=== PATIENT | female | born 1945 | race Caucasian/White ===

== ENCOUNTER 2016-10-11 07:56 | Emergency (ER) | payer MEDICARE, OTHER ==
--- NOTE | 2016-10-11 08:19 | Emergency Department Record ---
History of Present Illness - General Chief complaint: Abscess Stated complaint: SWELLING IN LEG/PAINFUL Time Seen by Provider: 10/11/16 08:13 Mode of Arrival: Wheelchair - History of Present Illness Initial comments: abcess in the area of the right labia majora and it has been present for 2 days and some drainage spontaneously. complaint: Abscess/boil Onset/Timin -: Days(s) Hx Tetanus Toxoid Vaccination: Yes Year of Tetanus Vaccination: unknown Patient Tetanus UTD (within 5 yrs): Yes Location: Genitals Severity scale (1-10): 10 Quality: Sharp Consistency: Constant Improves with: None Worsens with: Palpation, Movement Context: None Associated symptoms: Denies other symptoms Treatments Prior to Arrival: None - Related Data Home Medications Medication Instructions Recorded Confirmed Last Taken Aspirin [Aspirin EC] 81 mg PO DAILY 12/30/14 03/09/16 03/09/16 Ipratropium [place] [Atrovent] 15 ml NS TID PRN 12/30/14 03/09/16 03/09/16 Levocetirizine Dihydrochloride 5 mg PO DAILY 12/30/14 03/09/16 03/09/16 [Xyzal] Pramipexole Di-HCl [Mirapex] 0.5 mg PO QHS 12/30/14 03/09/16 03/09/16 Sertraline HCl [Zoloft] 200 mg PO DAILY 12/30/14 03/09/16 03/09/16 Donepezil HCl [Aricept] 10 mg PO DAILY 01/21/15 03/09/16 03/09/16 Cholecalciferol (Vitamin D3) 2,000 unit PO DAILY 11/20/15 03/09/16 03/09/16 [Vitamin D3] Gabapentin [Neurontin] 200 mg PO TID 11/20/15 03/09/16 03/09/16 Glucosamine Sulf/Chondroitin A 3 each PO DAILY 11/20/15 03/09/16 03/09/16 [Glucosamine-Chondroitin Cap] Immun Glob G(IgG)/Pro/Iga 0-50 50 ml IV MONTHLY 11/20/15 03/09/16 03/09/16 [Privigen 10% Vial] Meloxicam [Mobic] 7.5 mg PO BID 11/20/15 03/09/16 03/09/16 Trazodone HCl [Desyrel] 25 mg PO QHS PRN 11/20/15 03/09/16 03/09/16 Magnesium 200 mg PO DAILY 03/09/16 03/09/16 03/09/16 Previous Rx's Medication Instructions Recorded Omeprazole 40 mg PO BID #60 capsule. 12/30/14 Levothyroxine Sodium [Levoxyl] 150 mcg PO DAILY #30 tablet 03/22/15 Acetaminophen with Codeine 1 tab PO Q6H #7 tab 03/09/16 [Tylenol #3] Clindamycin HCl [Cleocin HCl] 300 mg PO Q8HR #30 capsule 10/11/16 Hydrocodone/Acetaminophen [[place] 1 tab PO Q6H PRN #20 tab 10/11/16 5mg/325mg] Allergies Allergy/AdvReac Type Severity Reaction Status Date / Time latex [LATEX] Allergy Intermediate HIVES Verified 11/20/15 09:57 Sulfa (Sulfonamide Allergy Intermediate HIVES Verified 11/20/15 09:57 Antibiotics) [SULFA (SULFONAMIDE ANTIBIOTICS)] tioconazole AdvReac pain Verified 03/09/16 16:44 [From Monistat 1 (tioconazole)] Travel Screening - Travel/Exposure Within Last 30 Days Have you traveled within the last 30 days?: No Review of Systems Reviewed: No additional complaints except as noted below Constitutional: Reports: As per HPI. Denies: Chills, Fever, Malaise, Night sweats, Weakness, Weight change Eyes: Reports: As per HPI. Denies: Eye discharge, Eye pain, Photophobia, Vision change ENT: Reports: As per HPI. Denies: Congestion, Dental pain, Ear pain, Epistaxis , Hearing loss, Throat pain Respiratory: Reports: As per HPI. Denies: Cough, Dyspnea, Hemoptysis, Stridor, Wheezes Cardiovascular: Reports: As per HPI. Denies: Arrhythmia, Chest pain, Dyspnea on exertion, Edema, Murmurs, Orthopnea, Palpitations, Paroxysmal nocturnal dyspnea, Rheumatic Fever, Syncope Endocrine: Reports: As per HPI. Denies: Fatigue, Heat or cold intolerance, Polydipsia, Polyuria Gastrointestinal: Reports: As per HPI. Denies: Abdominal pain, Constipation, Diarrhea, Hematemesis, Hematochezia, Melena, Nausea, Vomiting Genitourinary: Reports: As per HPI. Denies: Abnormal menses, Discharge, Dyspareunia, Dysuria, Frequency, Hematuria, Incontinence, Retention, Urgency Musculoskeletal: Reports: As per HPI. Denies: Arthralgia, Back pain, Gout, Joint swelling, Myalgia, Neck pain Skin: Reports: As per HPI. Denies: Bruising, Change in color, Change in hair/ nails, Lesions, Pruritus, Rash Neurological: Reports: As per HPI. Denies: Abnormal gait, Confusion, Headache, Numbness, Paresthesias, Seizure, Tingling, Tremors, Vertigo, Weakness Psychiatric: Reports: As per HPI. Denies: Anxiety, Auditory hallucinations, Depression, Homicidal thoughts, Suicidal thoughts, Visual hallucinations Hematological/Lymphatic: Reports: As per HPI. Denies: Anemia, Blood Clots, Easy bleeding, Easy bruising, Swollen glands Past Medical History - SOCIAL HISTORY Smoking Status: Never smoker Alcohol Use: None Drug Use: None - RESPIRATORY Hx Respiratory Disorders: Yes Hx Sleep Apnea: Yes (needs testing) Hx of CPAP: No Comment:: has sinus problems-common sinus infections-clear sinus drainage - CARDIOVASCULAR Hx Cardio Disorders: Yes Hx Edema: Yes Hx Hypertension: Yes Comment:: heart murmur - NEURO Hx Neuro Disorders: Yes Hx Brain Tumor: Yes (20 yrs ago "pinpoint"-many CAT scans-no problems) Hx Dementia: Yes (on meds) Hx Dizziness: Yes ("comes & goes"/thyroid related) Hx Headaches: Yes (sinus related) Hx Neuropathy: Yes (hands&feet) Hx Parkinson's Disease: Yes (trembling of hands) Comment:: 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 - GI Hx GI Disorders: Yes Hx Abdominal Pain: Yes (diverticulosis) Hx Diverticulitis: Yes Hx Reflux: Yes Hx Hiatal Hernia: Yes Hx Irritable Bowel: Yes Hx Obstructive Bowel: Yes Hx Wt Loss/Wt Gain: Yes - Hx Genitourinary Disorders: Yes Hx Bladder Problem: Yes (incontinence x 2 years) Hx Kidney Stones: Yes Comment:: hyst - ENDOCRINE Hx Endocrine Disorders: Yes Hx Thyroid Disease: Yes (hypo) - MUSCULOSKELETAL Hx Musculoskeletal Disorders: Yes Hx Arthritis: Yes (hands/knees/elbows/back & hips) Hx Back Injury: Yes (sees chiropractor) Hx Osteoporosis: Yes - PSYCH Hx Psych Problems: Yes Hx Anxiety: Yes Hx Depression: Yes Hx Suicide Attempt: Yes - HEMATOLOGY/ONCOLOGY Hx Hematology/Oncology Disorders: Yes 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:: melanoma-spot looks like it returned-right ankle Family Medical History Any Significant Family History?: Yes Hx Anxiety: Mother Hx Depression: Father, Mother, Children, Brother/Sister Hx Diabetes: Brother/Sister *Diabetes Comment: 2 sisters & 1 brother Hx Heart Disease: Father, Brother/Sister *Heart Comment: brother 3 MIs Hx Resp Disorders: Brother/Sister *Resp Comment: 3 sisters use CPAP @ nite Physical Exam - General General Appearance: Alert, Oriented x3, Cooperative, No acute distress - Head Head exam: Normal inspection - Eye Eye exam: Normal appearance, PERRL Pupils: Normal accommodation - ENT ENT exam: Normal exam, Mucous membranes moist, Normal external ear exam, Normal orophraynx, TM's normal bilaterally Ear exam: Normal external inspection. negative: External canal tenderness Nasal Exam: Normal inspection. negative: Discharge, Sinus tenderness Mouth exam: Normal external inspection, Tongue normal Teeth exam: Normal inspection. negative: Dental caries Throat exam: Normal inspection. negative: Tonsillar erythema, Tonsillar exudate - Neck Neck exam: Normal inspection, Full ROM. negative: Tenderness - Respiratory Respiratory exam: Normal lung sounds bilaterally. negative: Respiratory distress - Cardiovascular Cardiovascular Exam: Regular rate, Normal rhythm, Normal heart sounds - GI/Abdominal GI/Abdominal exam: Soft, Normal bowel sounds. negative: Tenderness - Rectal Rectal exam: Deferred - exam: Deferred - Extremities Extremities exam: Normal inspection, Full ROM, Normal capillary refill. negative: Tenderness - Back Back exam: Reports: Normal inspection, Full ROM. Denies: Muscle spasm, Rash noted, Tenderness - Neurological Neurological exam: Alert, Normal gait, Oriented X3, Reflexes normal - Psychiatric Psychiatric exam: Normal affect, Normal mood - Skin Skin exam: Dry, Intact, Normal color, Warm Type of lesion: Abscess (right labia majora) Course - Reevaluation(s) Reevaluation #1: I and D abscess , cleaned skin and incision with 11 blade and packing placed. purulent drainage 10/11/16 08:57 Disposition Clinical Impression: Abscess Disposition: Home, Self-Care Instructions: Abscess Incision and Drainage (ED) Additional Instructions: warm compresses three times a day follow up with Dr. Castañeda tomorrow at 10 am Prescriptions: Clindamycin HCl [Cleocin HCl] 300 mg PO Q8HR #30 capsule Hydrocodone/Acetaminophen [[place] 5mg/325mg] 1 tab PO Q6H PRN #20 tab PRN Reason: Pain - General Forms: Patient Portal Access Time of Disposition: 09:00
[2016-10-11] MEDS: HYDROMORPHONE HCL 1 MG/ML CPJ IVP ONE (08:22)
[2016-10-11] MEDS: ONDANSETRON HCL IV 4 MG/2 ML VIAL IVP ONE (08:22)
[2016-10-11] MEDS: CLINDAMYCIN 150 MG CAP PO ONE (10:07)
== END 2016-10-11 10:22 | disposition home or self-care (01) ==
LOC: ER 07:56
DX: N76.4 Abscess of vulva (principal)
CPT/HCPCS: 56405; 96374; 96375; 99284; J1170; J2405

== ENCOUNTER 2017-06-05 13:06 | Emergency (ER) | payer MEDICARE, OTHER ==
[2017-06-05 14:31] LABS: BASO % 0.2 % (0-6); EOS % 1.7 % (0-6); GRAN % 61.4 % (47-80); HEMATOCRIT 40.9 % (35.0-47.0); HEMOGLOBIN 13.4 gm/dl (11.6-16.0); LYMPH % 29.5 % (16-45); MEAN CELL VOLUME 92.3 fl (81-97); MEAN CORPUSCULAR HEMOGLOBIN 30.2 pg (27-33); MEAN CORPUSCULAR HGB CONC 32.8 g/dl (32-36); MEAN PLATELET VOLUME 10.6 fl (7.4-10.4); MONO % 7.2 % (0-9); PLATELET COUNT 165 K/uL (130-400); RED BLOOD COUNT 4.43 M/uL (3.80-5.40); RED CELL DISTRIBUTION WIDTH 14.8 % (11.5-14.5); WHITE BLOOD COUNT W/O DIFF 8.2 K/uL (4.2-12.2)
--- NOTE | 2017-06-05 14:31 | Emergency Department Record ---
History of Present Illness - General Chief Complaint: Fall Injury Stated Complaint: FELL, HEAD INJ Time Seen by Provider: 06/05/17 14:01 Source: Patient Mode of Arrival: Ambulatory Limitations: No limitations - History of Present Illness Initial Comments: pt fell twice recently hitting head and injuring her neck. pt is having multiple falls and increasing disturbances with her gait and speech. she has seen a neurologist but is no longer Onset/Timin -: Week(s) Fall From: Out of bed, Standing When Fall Occurred: Recurrent falls Fall Witnessed: No Place Fall Occurred: Home Loss of Consciousness: None Prolonged Down Time?: No Symptoms Prior to Fall: None Location: Head Severity: Moderate Severity scale (1-10): 7 Quality: Aching Context: History of frequent falls Associated Symptoms: Denies - [place] Coma Scale Eye Response: (4) Open spontaneously Motor Response: (6) Obeys commands Verbal Response: (5) Oriented Víctor Total: 15 - Related Data Previous Rx's Medication Instructions Recorded Omeprazole 40 mg PO BID #60 capsule. 12/30/14 Levothyroxine Sodium [Levoxyl] 150 mcg PO DAILY #30 tablet 03/22/15 Hydrocodone/Acetaminophen [[place] 1 tab PO Q6H PRN #20 tab 10/11/16 5mg/325mg] Allergies Allergy/AdvReac Type Severity Reaction Status Date / Time latex [LATEX] Allergy Intermediate HIVES Verified 06/05/17 13:48 Sulfa (Sulfonamide Allergy Intermediate HIVES Verified 06/05/17 13:48 Antibiotics) [SULFA (SULFONAMIDE ANTIBIOTICS)] tioconazole AdvReac pain Verified 06/05/17 13:48 [From Monistat 1 (tioconazole)] Travel Screening - Travel/Exposure Within Last 30 Days Have you traveled within the last 30 days?: No - Travel/Exposure Within Last Year Have you traveled outside the [place] in the last year?: No - Additonal Travel Details Have you been exposed to anyone with a communicable illness?: No - Travel Symptoms Symptom Screening: None Review of Systems Reviewed: No additional complaints except as noted below Constitutional: Reports: As per HPI. Denies: Chills, Fever, Malaise, Night sweats, Weakness, Weight change Eyes: Reports: As per HPI. Denies: Eye discharge, Eye pain, Photophobia, Vision change ENT: Reports: As per HPI. Denies: Congestion, Dental pain, Ear pain, Epistaxis , Hearing loss, Throat pain Respiratory: Reports: As per HPI. Denies: Cough, Dyspnea, Hemoptysis, Stridor, Wheezes Cardiovascular: Reports: As per HPI. Denies: Arrhythmia, Chest pain, Dyspnea on exertion, Edema, Murmurs, Orthopnea, Palpitations, Paroxysmal nocturnal dyspnea, Rheumatic Fever, Syncope Endocrine: Reports: As per HPI. Denies: Fatigue, Heat or cold intolerance, Polydipsia, Polyuria Gastrointestinal: Reports: As per HPI. Denies: Abdominal pain, Constipation, Diarrhea, Hematemesis, Hematochezia, Melena, Nausea, Vomiting Genitourinary: Reports: As per HPI. Denies: Abnormal menses, Discharge, Dyspareunia, Dysuria, Frequency, Hematuria, Incontinence, Retention, Urgency Musculoskeletal: Reports: As per HPI. Denies: Arthralgia, Back pain, Gout, Joint swelling, Myalgia, Neck pain Skin: Reports: As per HPI. Denies: Bruising, Change in color, Change in hair/ nails, Lesions, Pruritus, Rash Neurological: Reports: As per HPI. Denies: Abnormal gait, Confusion, Headache, Numbness, Paresthesias, Seizure, Tingling, Tremors, Vertigo, Weakness Psychiatric: Reports: As per HPI. Denies: Anxiety, Auditory hallucinations, Depression, Homicidal thoughts, Suicidal thoughts, Visual hallucinations Hematological/Lymphatic: Reports: As per HPI. Denies: Anemia, Blood Clots, Easy bleeding, Easy bruising, Swollen glands Past Medical History - SOCIAL HISTORY Smoking Status: Never smoker Alcohol Use: None Drug Use: None - RESPIRATORY Hx Respiratory Disorders: Yes Hx Sleep Apnea: Yes (needs testing) Hx of CPAP: No Comment:: has sinus problems-common sinus infections-clear sinus drainage - CARDIOVASCULAR Hx Cardio Disorders: Yes Hx Edema: Yes Hx Hypertension: Yes Comment:: heart murmur - NEURO Hx Neuro Disorders: Yes Hx Brain Tumor: Yes (20 yrs ago "pinpoint"-many CAT scans-no problems) Hx Dementia: Yes (on meds) Hx Dizziness: Yes ("comes & goes"/thyroid related) Hx Headaches: Yes (sinus related) Hx Neuropathy: Yes (hands&feet) Hx Parkinson's Disease: Yes (trembling of hands) Comment:: 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 - GI Hx GI Disorders: Yes Hx Abdominal Pain: Yes (diverticulosis) Hx Diverticulitis: Yes Hx Reflux: Yes Hx Hiatal Hernia: Yes Hx Irritable Bowel: Yes Hx Obstructive Bowel: Yes Hx Wt Loss/Wt Gain: Yes - Hx Genitourinary Disorders: Yes Hx Bladder Problem: Yes (incontinence x 2 years) Hx Kidney Stones: Yes Comment:: hyst - ENDOCRINE Hx Endocrine Disorders: Yes Hx Thyroid Disease: Yes (hypo) - MUSCULOSKELETAL Hx Musculoskeletal Disorders: Yes Hx Arthritis: Yes (hands/knees/elbows/back & hips) Hx Back Injury: Yes (sees chiropractor) Hx Osteoporosis: Yes - PSYCH Hx Psych Problems: Yes Hx Anxiety: Yes Hx Depression: Yes Hx Suicide Attempt: Yes - HEMATOLOGY/ONCOLOGY Hx Hematology/Oncology Disorders: Yes 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:: melanoma-spot looks like it returned-right ankle Family Medical History Any Significant Family History?: Yes Hx Anxiety: Mother Hx Depression: Father, Mother, Children, Brother/Sister Hx Diabetes: Brother/Sister *Diabetes Comment: 2 sisters & 1 brother Hx Heart Disease: Father, Brother/Sister *Heart Comment: brother 3 MIs Hx Resp Disorders: Brother/Sister *Resp Comment: 3 sisters use CPAP @ nite Physical Exam - General General Appearance: Alert, Oriented x3, Cooperative, Mild distress - Head Head exam: Normal inspection - Eye Eye exam: Normal appearance, PERRL, EOMI Pupils: Normal accommodation - ENT ENT exam: Normal exam, Mucous membranes moist, Normal external ear exam, Normal orophraynx Ear exam: Normal external inspection. negative: External canal tenderness Nasal Exam: Normal inspection. negative: Discharge, Sinus tenderness Mouth exam: Normal external inspection, Tongue normal Teeth exam: Normal inspection. negative: Dental caries Throat exam: Normal inspection. negative: Tonsillar erythema, Tonsillar exudate - Neck Neck exam: Normal inspection, Full ROM. negative: Tenderness - Respiratory Respiratory exam: Normal lung sounds bilaterally. negative: Respiratory distress - Cardiovascular Cardiovascular Exam: Regular rate, Normal rhythm, Normal heart sounds - GI/Abdominal GI/Abdominal exam: Soft, Normal bowel sounds. negative: Tenderness - Rectal Rectal exam: Deferred - exam: Deferred - Extremities Extremities exam: Normal inspection, Full ROM, Normal capillary refill. negative: Tenderness - Back Back exam: Reports: Normal inspection, Full ROM. Denies: Muscle spasm, Rash noted, Tenderness - Neurological Neurological exam: Abnormal gait, Alert, CN II-XII intact, Oriented X3, Other ( difficulty w speech). negative: Normal gait - Psychiatric Psychiatric exam: Normal affect, Normal mood - Skin Skin exam: Dry, Intact, Normal color, Warm Course Vital Signs 06/05/17 13:52 Temperature 98.3 F Pulse Rate 69 Respiratory 16 Rate Blood Pressure 147/85 Pulse Ox 95 Medical Decision Making - Lab Data Result diagrams: 06/05/17 14:22 06/05/17 14:22 Disposition Disposition: Discharge Clinical Impression: Frequent falls Head injury Qualifiers: Encounter type: initial encounter Qualified Code(s): S09.90XA - Unspecified injury of head, initial encounter Disposition: Home, Self-Care Condition: (1) Good Instructions: Fall Prevention for Older Adults (ED), Head Injury (ED) Additional Instructions: follow up with family doctor and with neurologist. return sooner if worse Forms: Patient Portal Access Quality - Quality Measures Quality Measures: N/A - Blood Pressure Screening Does Patient Have Any of the Following: No Blood Pressure Classification: Pre-Hypertensive BP Reading Systolic Measurement: 147 Diastolic Measurement: 85 Screening for High Blood Pressure: < Pre-Hypertensive BP, F/U Documented > [ [id number]] Pre-Hypertensive Follow-up Interventions: Follow-up with rescreen every year.
[2017-06-05 14:43] LABS: BLOOD UREA NITROGEN 22 mg/dL (8-23); CREATININE 0.6 mg/dL (0.5-0.9); EST GLOMERULAR FILTRATION RATE > 60 mL/min
[2017-06-05 14:46] LABS: GLUCOSE,RANDOM 106 mg/dL (74-109)
--- NOTE | 2017-06-06 07:30 | CT SCAN REPORT ---
EXAM: HEAD CT WITHOUT CONTRAST HISTORY: FALL, POSTERIOR HEAD CONTUSION. NO LOSS OF CONSCIOUSNESS. PERSISTENT HEADACHES. TECHNIQUE: Contiguous axial images from the cerebral convexities to the foramen magnum were obtained without contrast. Comparison: None. Encounter: Initial. Hand dominance: Right. FINDINGS: The brain volume is normal. No acute intracranial hemorrhage, mass effect, or midline shift. No CT evidence of acute infarct. The ventricles, basal cisterns, and sulci are within normal limits. The osseous structures and soft tissues are unremarkable. Mild mucosal thickening left maxillary sinus. IMPRESSION: 1. NO ACUTE INTRACRANIAL PROCESS. 2. LEFT CHRONIC MAXILLARY SINUSITIS. JOB NUMBER: [id number] [facility]
--- NOTE | 2017-06-06 07:35 | CT SCAN REPORT ---
EXAM: CERVICAL SPINE CT WITH TWO DIMENSIONAL REFORMATS HISTORY: FALL, POSTERIOR HEAD CONTUSION, NECK PAIN. TECHNIQUE: Contiguous axial images from the skull base to the T2 level were obtained without contrast. Sagittal and coronal two dimensional MIP reformatted images were obtained for better anatomic delineation. Comparison: None. Encounter: Initial. FINDINGS: Anatomic alignment of the cervical spine. The C1-C2 articulation appears appropriate and the odontoid process is intact. No acute fracture or subluxation. Moderate to advanced degenerative disk disease at C6-C7 manifested by loss of stature as well as end plate osteophytes. No central canal stenosis at any level. Varying degrees of neural foraminal stenosis most pronounced at C4-C5 on the right. Moderate left neural foraminal stenosis at C6 -C7 on the left. The soft tissues of the cervical region are unremarkable. The lung apices are clear. IMPRESSION: MULTILEVEL DEGENERATIVE CHANGE OF THE CERVICAL SPINE. NO ACUTE FRACTURE OR SUBLUXATION. JOB NUMBER: [id number] [facility]
== END 2017-06-05 15:30 | disposition home or self-care (01) ==
LOC: ER 13:06
DX: S09.90XA Unspecified injury of head, initial encounter (principal); S00.83XA Contusion of other part of head, initial encounter; M54.2 Cervicalgia; R51 Headache; I10 Essential (primary) hypertension; W06.XXXA Fall from bed, initial encounter; Z91.81 History of falling; Y92.003 Bedroom of unspecified non-institutional (private) residence as the place of occurrence of the external cause
CPT/HCPCS: 70450; 72125; 80048; 85025; 99283; 99284

== ENCOUNTER 2017-09-04 17:55 | Emergency (ER) | payer MEDICARE, OTHER ==
[2017-09-04] MEDS ORDERED: THROMBIN/GELATIN FOAM HEMOSTAT (THROMBI-GEL) TP ONE (18:23)
[2017-09-04] MEDS ORDERED: TOPICAL LIDOCAINE W/ EPI 5 ML TOP ONE (18:23)
--- NOTE | 2017-09-04 18:40 | Emergency Department Record ---
History of Present Illness - General Chief Complaint: Laceration(s) Stated Complaint: RT LEG BLEEDING Time Seen by Provider: 09/04/17 18:23 Source: Patient Mode of Arrival: Ambulatory Limitations: No limitations - History of Present Illness Initial Commments: 72 yo female presents with bleeding from a varicose vein. She scratched the vein on her right thigh. She is on aspirin. NO other recent health changes. Onset/Timin -: Minutes(s) Extremity Location: Right: Thigh Place: Home Context: Accidental Associated Symptoms: None Treatments Prior to Arrival: Other Treatment Prior to Arrival Comment:: tape - [place] Coma Scale Eye Response: (4) Open spontaneously Motor Response: (6) Obeys commands Verbal Response: (5) Oriented [place] Total: 15 - Related Data Hx Tetanus Toxoid Vaccination: Yes Year of Tetanus Vaccination: unknown Patient Tetanus UTD (within 5 yrs): Yes Home Medications Medication Instructions Recorded Confirmed Last Taken Atorvastatin Calcium [Atorvastatin 10 mg PO DAILY 09/04/17 09/04/17 09/04/17 Calcium] Bumetanide [Bumex] 1 mg PO DAILY 09/04/17 09/04/17 09/04/17 Levothyroxine Sodium [Levoxyl] 300 mcg PO DAILY 09/04/17 09/04/17 09/04/17 Memantine HCl/Donepezil HCl 1 each PO ASDIR 09/04/17 09/04/17 09/04/17 [Namzaric 28 mg-10 mg Capsule] Potassium Chloride [Potassium 10 meq PO DAILY 09/04/17 09/04/17 09/04/17 Chloride] Previous Rx's Medication Instructions Recorded Omeprazole 40 mg PO BID #60 capsule. 12/30/14 Allergies Allergy/AdvReac Type Severity Reaction Status Date / Time latex [LATEX] Allergy Intermediate HIVES Verified 09/04/17 18:11 Sulfa (Sulfonamide Allergy Intermediate HIVES Verified 09/04/17 18:11 Antibiotics) [SULFA (SULFONAMIDE ANTIBIOTICS)] tioconazole AdvReac pain Verified 09/04/17 18:11 [From Monistat 1 (tioconazole)] Travel Screening - Travel/Exposure Within Last 30 Days Have you traveled within the last 30 days?: No - Travel/Exposure Within Last Year Have you traveled outside the [place] in the last year?: No - Additonal Travel Details Have you been exposed to anyone with a communicable illness?: No - Travel Symptoms Symptom Screening: None Review of Systems Constitutional: Denies: Chills, Fever, Malaise, Weakness Eyes: Denies: Eye discharge ENT: Denies: Congestion Respiratory: Denies: Cough, Dyspnea, Hemoptysis Cardiovascular: Denies: Chest pain, Palpitations, Syncope Endocrine: Denies: Fatigue Gastrointestinal: Denies: Abdominal pain, Nausea, Vomiting Genitourinary: Denies: Dysuria, Urgency Musculoskeletal: Denies: Arthralgia, Back pain, Gout, Myalgia Skin: Denies: Bruising, Change in color, Rash Neurological: Denies: Headache Psychiatric: Denies: Anxiety Hematological/Lymphatic: Denies: Blood Clots, Easy bleeding, Easy bruising, Swollen glands Past Medical History - SOCIAL HISTORY Smoking Status: Never smoker Alcohol Use: None Drug Use: None - RESPIRATORY Hx Respiratory Disorders: Yes Hx Sleep Apnea: Yes (needs testing) Hx of CPAP: No Comment:: has sinus problems-common sinus infections-clear sinus drainage - CARDIOVASCULAR Hx Cardio Disorders: Yes Hx Edema: Yes Hx Hypertension: Yes Comment:: heart murmur - NEURO Hx Neuro Disorders: Yes Hx Brain Tumor: Yes (20 yrs ago "pinpoint"-many CAT scans-no problems) Hx Dementia: Yes (on meds) Hx Dizziness: Yes ("comes & goes"/thyroid related) Hx Headaches: Yes (sinus related) Hx Neuropathy: Yes (hands&feet) Hx Parkinson's Disease: Yes (trembling of hands) Comment:: 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 - GI Hx GI Disorders: Yes Hx Abdominal Pain: Yes (diverticulosis) Hx Diverticulitis: Yes Hx Reflux: Yes Hx Hiatal Hernia: Yes Hx Irritable Bowel: Yes Hx Obstructive Bowel: Yes Hx Wt Loss/Wt Gain: Yes - Hx Genitourinary Disorders: Yes Hx Bladder Problem: Yes (incontinence x 2 years) Hx Kidney Stones: Yes Comment:: hyst - ENDOCRINE Hx Endocrine Disorders: Yes Hx Thyroid Disease: Yes (hypo) - MUSCULOSKELETAL Hx Musculoskeletal Disorders: Yes Hx Arthritis: Yes (hands/knees/elbows/back & hips) Hx Back Injury: Yes (sees chiropractor) Hx Osteoporosis: Yes - PSYCH Hx Psych Problems: Yes Hx Anxiety: Yes Hx Depression: Yes Hx Suicide Attempt: Yes - HEMATOLOGY/ONCOLOGY Hx Hematology/Oncology Disorders: Yes 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:: melanoma-spot looks like it returned-right ankle Family Medical History Any Significant Family History?: Yes Hx Anxiety: Mother Hx Depression: Father, Mother, Children, Brother/Sister Hx Diabetes: Brother/Sister *Diabetes Comment: 2 sisters & 1 brother Hx Heart Disease: Father, Brother/Sister *Heart Comment: brother 3 MIs Hx Resp Disorders: Brother/Sister *Resp Comment: 3 sisters use CPAP @ nite Physical Exam - General General Appearance: Alert, Oriented x3, Cooperative, No acute distress Limitations: No limitations - Head Head exam: Atraumatic, Normal inspection - Eye Eye exam: Normal appearance. negative: Conjunctival injection, Scleral icterus - ENT ENT exam: Normal exam Ear exam: Normal external inspection Nasal Exam: Normal inspection Mouth exam: Normal external inspection - Neck Neck exam: Normal inspection - Respiratory Respiratory exam: Normal lung sounds bilaterally. negative: Respiratory distress - Cardiovascular Cardiovascular Exam: Regular rate, Normal rhythm, Normal heart sounds - Rectal Rectal exam: Deferred - exam: Deferred - Extremities Extremities exam: Other (2mm scabbed area mid anterior thigh. no active bleeding). negative: Normal inspection - Neurological Neurological exam: Alert, Oriented X3 - Psychiatric Psychiatric exam: Normal affect, Normal mood - Skin Skin exam: Dry, Intact, Normal color, Warm Course Vital Signs 09/04/17 18:16 Temperature 97.6 F Pulse Rate 82 Respiratory 20 Rate Blood Pressure 146/72 Pulse Ox 96 - Reevaluation(s) Reevaluation #1: 09/04/17 19:00 The area had pressure on it the last hour The area had formed a small scab/clot No active bleeding The area was prepped with betadine and cleaned with NS No return of bleeding The area was sealed with Dermabond without bleeding We discussed home care and reasons to return to the ED Disposition Disposition: Discharge Clinical Impression: Varicose vein of leg Disposition: Home, Self-Care Condition: (1) Good Instructions: Stasis Dermatitis (ED) Additional Instructions: Keep the area clean The Dermabond will last about 5-7 days Return if you have bleeding, redness, pus, or any new concerns Forms: Patient Portal Access Time of Disposition: 18:41 Quality - Quality Measures Quality Measures: N/A - Blood Pressure Screening Does Patient Have Any of the Following: No Blood Pressure Classification: Hypertensive Reading Systolic Measurement: 146 Diastolic Measurement: 72 Screening for High Blood Pressure: < Pre-Hypertensive BP, F/U Documented > [ [id number]] Pre-Hypertensive Follow-up Interventions: Referral to alternative/primary care provider.
== END 2017-09-04 19:16 | disposition home or self-care (01) ==
LOC: ER 17:55
DX: I83.891 Varicose veins of right lower extremity with other complications (principal); I10 Essential (primary) hypertension
CPT/HCPCS: 99283

== ENCOUNTER 2017-12-21 07:09 | Emergency (ER) | payer MEDICARE, OTHER ==
[2017-12-21] MEDS ORDERED: TRAMADOL HCL 50 MG TABLET PO ONE (07:32)
--- NOTE | 2017-12-21 07:36 | Emergency Department Record ---
History of Present Illness - General Chief Complaint: Fall Injury Stated Complaint: FALL Time Seen by Provider: 12/21/17 07:23 Source: Patient, Family Mode of Arrival: Ambulatory Limitations: No limitations - History of Present Illness Initial Comments: 72 yo female presents after a fall two days ago on December 19 at AM. She was not using he walker, carrying a laundry basket. She turned an lost her balance. She has had elbow, back, neck, and hip pain since then. She has a chronic degenerative neurologic disorder. She has had frequent falls over many years. She has had a history of compression fractures with cement injections about a month ago at another hospital. She did not hit her head, no head ache. She is not on anti-coagulants. PCP [facility]. Beth Fagan. She has been ambulatory with her walker since the fall. MD Complaint: Fall Onset/Timin -: Days(s) When Fall Occurred: # Days [employer]GE[employer] Fall Witnessed: No Place Fall Occurred: Home Loss of Consciousness: None Prolonged Down Time?: No Symptoms Prior to Fall: None Location: Head, Neck, Back, Buttocks Location - Extremities: Left: Elbow, Thigh, Right: Thigh Severity: Moderate Severity scale (1-10): 6 Context: History of frequent falls - [place] Coma Scale Eye Response: (4) Open spontaneously Motor Response: (6) Obeys commands Verbal Response: (5) Oriented [place] Total: 15 - Related Data Previous Rx's Medication Instructions Recorded Omeprazole 40 mg PO BID #60 capsule. 12/30/14 Allergies Allergy/AdvReac Type Severity Reaction Status Date / Time latex [LATEX] Allergy Intermediate HIVES Verified 12/21/17 07:27 Sulfa (Sulfonamide Allergy Intermediate HIVES Verified 12/21/17 07:27 Antibiotics) [SULFA (SULFONAMIDE ANTIBIOTICS)] tioconazole AdvReac pain Verified 12/21/17 07:27 [From Monistat 1 (tioconazole)] Travel Screening - Travel/Exposure Within Last 30 Days Have you traveled within the last 30 days?: No - Travel/Exposure Within Last Year Have you traveled outside the [place] in the last year?: No - Additonal Travel Details Have you been exposed to anyone with a communicable illness?: No - Travel Symptoms Symptom Screening: None Review of Systems Constitutional: Denies: Chills, Fever, Weakness Eyes: Denies: Eye discharge, Eye pain, Photophobia, Vision change ENT: Denies: Congestion, Dental pain, Ear pain, Epistaxis, Throat pain Respiratory: Denies: Cough Cardiovascular: Denies: Chest pain, Palpitations, Syncope Endocrine: Denies: Fatigue, Polydipsia, Polyuria Gastrointestinal: Denies: Abdominal pain, Diarrhea, Nausea, Vomiting Genitourinary: Denies: Dysuria, Urgency Musculoskeletal: Reports: Arthralgia, Back pain, Myalgia, Neck pain. Denies: Joint swelling Skin: Reports: Bruising. Denies: Change in color, Rash Neurological: Denies: Confusion, Headache, Numbness, Tingling, Tremors, Vertigo , Weakness Psychiatric: Denies: Anxiety Hematological/Lymphatic: Denies: Blood Clots, Easy bleeding, Easy bruising, Swollen glands Past Medical History - SOCIAL HISTORY Smoking Status: Never smoker Alcohol Use: None Drug Use: None - RESPIRATORY Hx Respiratory Disorders: Yes Hx Sleep Apnea: Yes (needs testing) Hx of CPAP: No Comment:: has sinus problems-common sinus infections-clear sinus drainage - CARDIOVASCULAR Hx Cardio Disorders: Yes Hx Edema: Yes Hx Hypertension: Yes Comment:: heart murmur - NEURO Hx Neuro Disorders: Yes Hx Brain Tumor: Yes (20 yrs ago "pinpoint"-many CAT scans-no problems) Hx Dementia: Yes (on meds) Hx Dizziness: Yes ("comes & goes"/thyroid related) Hx Headaches: Yes (sinus related) Hx Neuropathy: Yes (hands&feet) Hx Parkinson's Disease: Yes (trembling of hands) Comment:: 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 - GI Hx GI Disorders: Yes Hx Abdominal Pain: Yes (diverticulosis) Hx Diverticulitis: Yes Hx Reflux: Yes Hx Hiatal Hernia: Yes Hx Irritable Bowel: Yes Hx Obstructive Bowel: Yes Hx Wt Loss/Wt Gain: Yes - Hx Genitourinary Disorders: Yes Hx Bladder Problem: Yes (incontinence x 2 years) Hx Kidney Stones: Yes Comment:: hyst - ENDOCRINE Hx Endocrine Disorders: Yes Hx Thyroid Disease: Yes (hypo) - MUSCULOSKELETAL Hx Musculoskeletal Disorders: Yes Hx Arthritis: Yes (hands/knees/elbows/back & hips) Hx Back Injury: Yes (sees chiropractor) Hx Osteoporosis: Yes - PSYCH Hx Psych Problems: Yes Hx Anxiety: Yes Hx Depression: Yes Hx Suicide Attempt: Yes - HEMATOLOGY/ONCOLOGY Hx Hematology/Oncology Disorders: Yes 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:: melanoma-spot looks like it returned-right ankle Family Medical History Any Significant Family History?: Yes Hx Anxiety: Mother Hx Depression: Father, Mother, Children, Brother/Sister Hx Diabetes: Brother/Sister *Diabetes Comment: 2 sisters & 1 brother Hx Heart Disease: Father, Brother/Sister *Heart Comment: brother 3 MIs Hx Resp Disorders: Brother/Sister *Resp Comment: 3 sisters use CPAP @ nite Physical Exam - General General Appearance: Alert, Oriented x3, Cooperative, No acute distress Limitations: No limitations - Head Head exam: Atraumatic, Normocephalic, Normal inspection Head exam detail: negative: Abrasion, Contusion, Wood's sign, General tenderness, Hematoma, Laceration, [place] eyes - Eye Eye exam: Normal appearance, PERRL. negative: Conjunctival injection, Scleral icterus - ENT ENT exam: Normal exam, Mucous membranes moist, Normal orophraynx Ear exam: Normal external inspection Nasal Exam: Normal inspection Mouth exam: Normal external inspection Teeth exam: Normal inspection Throat exam: Normal inspection - Neck Neck exam: Normal inspection, Full ROM, Tenderness (upper cervical paraspinal) - Respiratory Respiratory exam: Normal lung sounds bilaterally. negative: Chest wall tenderness, Respiratory distress - Cardiovascular Cardiovascular Exam: Regular rate, Normal rhythm, Normal heart sounds - GI/Abdominal GI/Abdominal exam: Soft. negative: Tenderness - Rectal Rectal exam: Deferred - exam: Deferred - Extremities Extremities exam: Normal inspection, Full ROM, Tenderness. negative: Pedal edema - Back Back exam: Reports: Full ROM, Tenderness, Vertebral tenderness. Denies: CVA tenderness (R), CVA tenderness (L) Image of Body Front/Back: 1 - tenderness, normal inspection 2 - bilateral hip tenderness, full ROM 3 - posterior bruising, mild swelling - Neurological Neurological exam: Alert, Normal gait (baseline), Oriented X3, Other (She ambulated into the ED with her walker.). negative: Altered, Motor sensory deficit - Psychiatric Psychiatric exam: Normal affect, Normal mood. negative: Agitated, Anxious - Skin Skin exam: Dry, Intact, Normal color, Warm. negative: Abrasion, Cyanosis Course - Reevaluation(s) Reevaluation #1: 12/21/17 08:38 The HCT was read as negative The Cervical Spine CT was negative for acute injury. Degenerative changes noted 12/21/17 08:47 The T spine XR was negative The Bilateral Hip with pelvis was negative The left elbow was read as no fracture, hypertrophic changes 12/21/17 09:10 We discussed the results of the tests and questions were answered at the time of discharge. The patient is doing well and is comfortable with DC. DC vitals were reviewed. We discussed at length reasons to immediately return to the ED as well as close follow up. The patient will call the PCP for close follow up of this ED visit to review this visit and the tests performed 12/21/17 10:16 Disposition Disposition: Discharge Clinical Impression: Contusion, hip Qualifiers: Encounter type: initial encounter Laterality: unspecified laterality Qualified Code(s): S70.00XA - Contusion of unspecified hip, initial encounter Contusion, elbow Qualifiers: Encounter type: initial encounter Laterality: left Qualified Code(s): S50.02XA - Contusion of left elbow, initial encounter Neck strain Qualifiers: Encounter type: initial encounter Qualified Code(s): S16.1XXA - Strain of muscle, fascia and tendon at neck level, initial encounter Thoracic myofascial strain Qualifiers: Encounter type: initial encounter Qualified Code(s): S29.019A - Strain of muscle and tendon of unspecified wall of thorax, initial encounter Disposition: Home, Self-Care Condition: (1) Good Instructions: Fall Prevention for Older Adults (ED) Additional Instructions: Use your walker at all times Call your doctor for a recheck of the ER visit and all the tests performed Return if you have uncontrolled pain, new pain or any new concerns Forms: Patient Portal Access Time of Disposition: 09:09 Quality - Quality Measures Quality Measures: N/A - Blood Pressure Screening Does Patient Have Any of the Following: Active Dx of HTN Blood Pressure Classification: Hypertensive Reading Systolic Measurement: 148 Diastolic Measurement: 68 Screening for High Blood Pressure: Patient Exclusion, Hx of HTN [G9744]
[2017-12-21] MEDS ORDERED: ACETAMINOPHEN 500 MG TABLET PO ONE (08:37)
[2017-12-21] MEDS ORDERED: GABAPENTIN 100 MG CAPSULE PO STA (08:37)
--- NOTE | 2017-12-22 20:04 | CT SCAN REPORT ---
EXAM: CT SCAN HEAD WO CONTRAST HISTORY: INJURY. TECHNIQUE: Sequential axial images were obtained from the foramen magnum to the vertex without contrast administration. FINDINGS: The brain volume is normal. No large territorial infarct, hemorrhage , mass effect, or midline shift. No extraaxial fluid collection. The orbits, paranasal sinuses, and mastoid air cells are normal. IMPRESSION: NO ACUTE INTRACRANIAL ABNORMALITY IS APPRECIATED. [facility] [id number] [facility]
--- NOTE | 2017-12-22 20:07 | CT SCAN REPORT ---
EXAM: CT SCAN CERVICAL SPINE WO CONTRAST HISTORY: INJURY. TECHNIQUE: Sequential axial images were obtained through the cervical spine without intravenous contrast administration. FINDINGS: There is multilevel degenerative change. No evidence of fracture, subluxation, or perched facet. The lateral masses are well aligned. IMPRESSION: MULTILEVEL DEGENERATIVE CHANGE. NO EVIDENCE FOR FRACTURE, SUBLUXATION, OR PERCHED FACET. JOB NUMBER: [id number] [facility]
--- NOTE | 2017-12-22 20:11 | RADIOLOGY REPORT ---
EXAM: ELBOW, LEFT 3 VIEWS HISTORY: INJURY. TECHNIQUE: Two views of the left elbow were performed. FINDINGS: There is degenerative change of the elbow joint. No evidence of fracture or dislocation. No lytic or blastic lesion. IMPRESSION: DEGENERATIVE CHANGE OF THE ELBOW JOINT. NO ACUTE PROCESS. JOB NUMBER: [id number] [facility]
--- NOTE | 2017-12-22 20:19 | RADIOLOGY REPORT ---
EXAM: THORACIC SPINE HISTORY: FALL. TECHNIQUE: Two views of the thoracic spine were performed. FINDINGS: No evidence of compression fracture deformity. There is multilevel degenerative change. There is prominence of the right hilar contour. Underlying mass or lymphadenopathy cannot be entirely excluded. IMPRESSION: 1. NO EVIDENCE OF COMPRESSION FRACTURE DEFORMITY. MILD MULTILEVEL DEGENERATIVE CHANGE. 2. PROMINENCE OF THE RIGHT HILAR REGION. THIS MAY REPRESENT LYMPHADENOPATHY OR MASS. JOB NUMBER: [id number] [facility]
--- NOTE | 2017-12-22 20:21 | RADIOLOGY REPORT ---
EXAM: HIP,BILATERAL W/PELVIS 2 VIEWS HISTORY: FALL. TECHNIQUE: Single AP view of the pelvis. AP and frog-leg views of both hip joints were performed. FINDINGS: No evidence for fracture or dislocation. No lytic or blastic lesion. IMPRESSION: NEGATIVE AP PELVIS, BILATERAL HIP EXAMINATION. JOB NUMBER: [id number] [facility]
== END 2017-12-21 09:32 | disposition home or self-care (01) ==
LOC: ER 07:09
DX: S70.02XA Contusion of left hip, initial encounter (principal); S70.01XA Contusion of right hip, initial encounter; S29.019A Strain of muscle and tendon of unspecified wall of thorax, initial encounter; S16.1XXA Strain of muscle, fascia and tendon at neck level, initial encounter; S50.02XA Contusion of left elbow, initial encounter; I10 Essential (primary) hypertension; W01.10XA Fall on same level from slipping, tripping and stumbling with subsequent striking against unspecified object, initial encounter; Y92.009 Unspecified place in unspecified non-institutional (private) residence as the place of occurrence of the external cause; Y93.E2 Activity, laundry; Z91.81 History of falling
CPT/HCPCS: 70450; 72072; 72125; 73521; 99284

== ENCOUNTER 2018-01-01 06:31 | Emergency (ER) | payer MEDICARE, OTHER ==
--- NOTE | 2018-01-01 06:56 | Emergency Department Record ---
History of Present Illness - General Chief Complaint: Fall Injury Stated Complaint: FELL YESTERDAY Time Seen by Provider: 01/01/18 06:50 Source: Patient Mode of Arrival: Ambulatory Limitations: No limitations - History of Present Illness Initial Comments: pt was bent over drying her legs when she lost her balance in the shower and hit her head and hurt her neck. she had no loc. she has some tingling in her hands. 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, Recurrent falls Fall Witnessed: No Place Fall Occurred: Home Loss of Consciousness: None Prolonged Down Time?: No Symptoms Prior to Fall: None Location: Head, Neck Severity scale (1-10): 10 Quality: Aching Context: History of frequent falls - Víctor Coma Scale Eye Response: (4) Open spontaneously Motor Response: (6) Obeys commands Verbal Response: (5) Oriented Víctor Total: 15 - Related Data Home Medications Medication Instructions Recorded Confirmed Last Taken Albuterol Sulfate [Ventolin Hfa] 1 - 2 puff IH Q6HR PRN 01/01/18 01/01/18 Unknown Cetirizine HCl 10 mg PO DAILY 01/01/18 01/01/18 Unknown Colestipol HCl 1 gm PO BID 01/01/18 01/01/18 Unknown Duloxetine HCl [Cymbalta] 20 mg PO DAILY 01/01/18 01/01/18 Unknown Melatonin 10 mg PO QHS 01/01/18 01/01/18 Unknown Omeprazole 40 mg PO DAILY 01/01/18 01/01/18 Unknown Allergies Allergy/AdvReac Type Severity Reaction Status Date / Time latex [LATEX] Allergy Intermediate HIVES Verified 12/21/17 07:27 Sulfa (Sulfonamide Allergy Intermediate HIVES Verified 12/21/17 07:27 Antibiotics) [SULFA (SULFONAMIDE ANTIBIOTICS)] tioconazole AdvReac pain Verified 12/21/17 07:27 [From Monistat 1 (tioconazole)] Travel Screening - Travel/Exposure Within Last 30 Days Have you traveled within the last 30 days?: No Review of Systems Reviewed: No additional complaints except as noted below Constitutional: Reports: As per HPI, Weakness. Denies: Chills, Fever, Malaise, Night sweats, Weight change Eyes: Reports: As per HPI. Denies: Eye discharge, Eye pain, Photophobia, Vision change ENT: Reports: As per HPI. Denies: Congestion, Dental pain, Ear pain, Epistaxis , Hearing loss, Throat pain Respiratory: Reports: As per HPI. Denies: Cough, Dyspnea, Hemoptysis, Stridor, Wheezes Cardiovascular: Reports: As per HPI, Murmurs. Denies: Arrhythmia, Chest pain, Dyspnea on exertion, Edema, Orthopnea, Palpitations, Paroxysmal nocturnal dyspnea, Rheumatic Fever, Syncope Endocrine: Reports: As per HPI. Denies: Fatigue, Heat or cold intolerance, Polydipsia, Polyuria Gastrointestinal: Reports: As per HPI. Denies: Abdominal pain, Constipation, Diarrhea, Hematemesis, Hematochezia, Melena, Nausea, Vomiting Genitourinary: Reports: As per HPI. Denies: Abnormal menses, Discharge, Dyspareunia, Dysuria, Frequency, Hematuria, Incontinence, Retention, Urgency Musculoskeletal: Reports: As per HPI. Denies: Arthralgia, Back pain, Gout, Joint swelling, Myalgia, Neck pain Skin: Reports: As per HPI. Denies: Bruising, Change in color, Change in hair/ nails, Lesions, Pruritus, Rash Neurological: Reports: As per HPI, Abnormal gait, Tingling, Tremors. Denies: Confusion, Headache, Numbness, Paresthesias, Seizure, Vertigo, Weakness Psychiatric: Reports: As per HPI. Denies: Anxiety, Auditory hallucinations, Depression, Homicidal thoughts, Suicidal thoughts, Visual hallucinations Hematological/Lymphatic: Reports: As per HPI. Denies: Anemia, Blood Clots, Easy bleeding, Easy bruising, Swollen glands Past Medical History - SOCIAL HISTORY Smoking Status: Never smoker Alcohol Use: None Drug Use: None - RESPIRATORY Hx Respiratory Disorders: Yes Hx Sleep Apnea: Yes (needs testing) Hx of CPAP: No Comment:: has sinus problems-common sinus infections-clear sinus drainage - CARDIOVASCULAR Hx Cardio Disorders: Yes Hx Edema: Yes Hx Hypertension: Yes Comment:: heart murmur - NEURO Hx Neuro Disorders: Yes Hx Brain Tumor: Yes (20 yrs ago "pinpoint"-many CAT scans-no problems) Hx Dementia: Yes (on meds) Hx Dizziness: Yes ("comes & goes"/thyroid related) Hx Headaches: Yes (sinus related) Hx Neuropathy: Yes (hands&feet) Hx Parkinson's Disease: Yes (trembling of hands) Comment:: 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 - GI Hx GI Disorders: Yes Hx Abdominal Pain: Yes (diverticulosis) Hx Diverticulitis: Yes Hx Reflux: Yes Hx Hiatal Hernia: Yes Hx Irritable Bowel: Yes Hx Obstructive Bowel: Yes Hx Wt Loss/Wt Gain: Yes - Hx Genitourinary Disorders: Yes Hx Bladder Problem: Yes (incontinence x 2 years) Hx Kidney Stones: Yes Comment:: hyst - ENDOCRINE Hx Endocrine Disorders: Yes Hx Thyroid Disease: Yes (hypo) - MUSCULOSKELETAL Hx Musculoskeletal Disorders: Yes Hx Arthritis: Yes (hands/knees/elbows/back & hips) Hx Back Injury: Yes (sees chiropractor) Hx Osteoporosis: Yes - PSYCH Hx Psych Problems: Yes Hx Anxiety: Yes Hx Depression: Yes Hx Suicide Attempt: Yes - HEMATOLOGY/ONCOLOGY Hx Hematology/Oncology Disorders: Yes 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:: melanoma-spot looks like it returned-right ankle Family Medical History Any Significant Family History?: Yes Hx Anxiety: Mother Hx Depression: Father, Mother, Children, Brother/Sister Hx Diabetes: Brother/Sister *Diabetes Comment: 2 sisters & 1 brother Hx Heart Disease: Father, Brother/Sister *Heart Comment: brother 3 MIs Hx Resp Disorders: Brother/Sister *Resp Comment: 3 sisters use CPAP @ nite Physical Exam - General General Appearance: Alert, Oriented x3, Cooperative, Mild distress - Head Head exam: Normal inspection Head exam detail: General tenderness - Eye Eye exam: Normal appearance, PERRL Pupils: Normal accommodation - ENT ENT exam: Normal exam, Mucous membranes moist, Normal external ear exam, Normal orophraynx, TM's normal bilaterally Ear exam: Normal external inspection. negative: External canal tenderness Nasal Exam: Normal inspection. negative: Discharge, Sinus tenderness Mouth exam: Normal external inspection, Tongue normal Teeth exam: Normal inspection. negative: Dental caries Throat exam: Normal inspection. negative: Tonsillar erythema, Tonsillar exudate - Neck Neck exam: Normal inspection, Full ROM, Tenderness - Respiratory Respiratory exam: Normal lung sounds bilaterally. negative: Respiratory distress - Cardiovascular Cardiovascular Exam: Regular rate, Normal rhythm, Normal heart sounds - GI/Abdominal GI/Abdominal exam: Soft, Normal bowel sounds. negative: Tenderness - Rectal Rectal exam: Deferred - exam: Deferred - Extremities Extremities exam: Normal inspection, Full ROM, Normal capillary refill, Tenderness (index finger l, r 5th finger) - Back Back exam: Reports: Normal inspection, Full ROM. Denies: Muscle spasm, Rash noted, Tenderness - Neurological Neurological exam: Alert, CN II-XII intact, Oriented X3. negative: Normal gait - Psychiatric Psychiatric exam: Normal affect, Normal mood - Skin Skin exam: Dry, Intact, Normal color, Warm Course Vital Signs 01/01/18 06:48 Temperature 97.7 F Pulse Rate [ 71 Pulse Ox Probe] Respiratory 20 Rate Blood Pressure 131/65 [Left Arm] Pulse Ox 95 - Reevaluation(s) Reevaluation #1: 01/01/18 06:[address] barcenas Disposition Quality - Quality Measures Quality Measures: N/A - Blood Pressure Screening Does Patient Have Any of the Following: No Blood Pressure Classification: Pre-Hypertensive BP Reading Systolic Measurement: 131 Diastolic Measurement: 65 Screening for High Blood Pressure: < Pre-Hypertensive BP, F/U Documented > [ G8950] Pre-Hypertensive Follow-up Interventions: Follow-up with rescreen every year.
--- NOTE | 2018-01-01 07:20 | Emergency Department Record ---
History of Present Illness - General Chief Complaint: Fall Injury Stated Complaint: FELL YESTERDAY Time Seen by Provider: 01/01/18 06:50 Source: Patient Mode of Arrival: Ambulatory - History of Present Illness Initial Comments: 72 female presents after a fall yesterday evening. She fell over drying her legs after getting out of the shower. No LOC. She has headache and neck pain today. No weakness, numbness, nausea, or vomiting. She has a long history of balance issues and falls. No other abrupt changes in her health. She was seen this morning by Dr Oviedo, radiology imaging ordered and she was signed out at 07 :00 shift change. 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, Recurrent falls Fall Witnessed: No Place Fall Occurred: Home Loss of Consciousness: None Prolonged Down Time?: No Symptoms Prior to Fall: None Location: Head, Neck Severity scale (1-10): 10 Quality: Aching Context: History of frequent falls - Víctor Coma Scale Eye Response: (4) Open spontaneously Motor Response: (6) Obeys commands Verbal Response: (5) Oriented Geronimo Total: 15 - Related Data Home Medications Medication Instructions Recorded Confirmed Last Taken Albuterol Sulfate [Ventolin Hfa] 1 - 2 puff IH Q6HR PRN 01/01/18 01/01/18 Unknown Cetirizine HCl 10 mg PO DAILY 01/01/18 01/01/18 Unknown Colestipol HCl 1 gm PO BID 01/01/18 01/01/18 Unknown Duloxetine HCl [Cymbalta] 20 mg PO DAILY 01/01/18 01/01/18 Unknown Melatonin 10 mg PO QHS 01/01/18 01/01/18 Unknown Omeprazole 40 mg PO DAILY 01/01/18 01/01/18 Unknown Allergies Allergy/AdvReac Type Severity Reaction Status Date / Time latex [LATEX] Allergy Intermediate HIVES Verified 12/21/17 07:27 Sulfa (Sulfonamide Allergy Intermediate HIVES Verified 12/21/17 07:27 Antibiotics) [SULFA (SULFONAMIDE ANTIBIOTICS)] tioconazole AdvReac pain Verified 12/21/17 07:27 [From Monistat 1 (tioconazole)] Travel Screening - Travel/Exposure Within Last 30 Days Have you traveled within the last 30 days?: No Review of Systems ROS unobtainable: Other (Per Dr Oviedo) Constitutional: Reports: As per HPI, Weakness. Denies: Chills, Fever, Malaise, Night sweats, Weight change Eyes: Reports: As per HPI. Denies: Eye discharge, Eye pain, Photophobia, Vision change ENT: Reports: As per HPI. Denies: Congestion, Dental pain, Ear pain, Epistaxis , Hearing loss, Throat pain Respiratory: Reports: As per HPI. Denies: Cough, Dyspnea, Hemoptysis, Stridor, Wheezes Cardiovascular: Reports: As per HPI, Murmurs. Denies: Arrhythmia, Chest pain, Dyspnea on exertion, Edema, Orthopnea, Palpitations, Paroxysmal nocturnal dyspnea, Rheumatic Fever, Syncope Endocrine: Reports: As per HPI. Denies: Fatigue, Heat or cold intolerance, Polydipsia, Polyuria Gastrointestinal: Reports: As per HPI. Denies: Abdominal pain, Constipation, Diarrhea, Hematemesis, Hematochezia, Melena, Nausea, Vomiting Genitourinary: Reports: As per HPI. Denies: Abnormal menses, Discharge, Dyspareunia, Dysuria, Frequency, Hematuria, Incontinence, Retention, Urgency Musculoskeletal: Reports: As per HPI. Denies: Arthralgia, Back pain, Gout, Joint swelling, Myalgia, Neck pain Skin: Reports: As per HPI. Denies: Bruising, Change in color, Change in hair/ nails, Lesions, Pruritus, Rash Neurological: Reports: As per HPI, Abnormal gait, Tingling, Tremors. Denies: Confusion, Headache, Numbness, Paresthesias, Seizure, Vertigo, Weakness Psychiatric: Reports: As per HPI. Denies: Anxiety, Auditory hallucinations, Depression, Homicidal thoughts, Suicidal thoughts, Visual hallucinations Hematological/Lymphatic: Reports: As per HPI. Denies: Anemia, Blood Clots, Easy bleeding, Easy bruising, Swollen glands Past Medical History - SOCIAL HISTORY Smoking Status: Never smoker Alcohol Use: None Drug Use: None - RESPIRATORY Hx Respiratory Disorders: Yes Hx Sleep Apnea: Yes (needs testing) Hx of CPAP: No Comment:: has sinus problems-common sinus infections-clear sinus drainage - CARDIOVASCULAR Hx Cardio Disorders: Yes Hx Edema: Yes Hx Hypertension: Yes Comment:: heart murmur - NEURO Hx Neuro Disorders: Yes Hx Brain Tumor: Yes (20 yrs ago "pinpoint"-many CAT scans-no problems) Hx Dementia: Yes (on meds) Hx Dizziness: Yes ("comes & goes"/thyroid related) Hx Headaches: Yes (sinus related) Hx Neuropathy: Yes (hands&feet) Hx Parkinson's Disease: Yes (trembling of hands) Comment:: 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 - GI Hx GI Disorders: Yes Hx Abdominal Pain: Yes (diverticulosis) Hx Diverticulitis: Yes Hx Reflux: Yes Hx Hiatal Hernia: Yes Hx Irritable Bowel: Yes Hx Obstructive Bowel: Yes Hx Wt Loss/Wt Gain: Yes - Hx Genitourinary Disorders: Yes Hx Bladder Problem: Yes (incontinence x 2 years) Hx Kidney Stones: Yes Comment:: hyst - ENDOCRINE Hx Endocrine Disorders: Yes Hx Thyroid Disease: Yes (hypo) - MUSCULOSKELETAL Hx Musculoskeletal Disorders: Yes Hx Arthritis: Yes (hands/knees/elbows/back & hips) Hx Back Injury: Yes (sees chiropractor) Hx Osteoporosis: Yes - PSYCH Hx Psych Problems: Yes Hx Anxiety: Yes Hx Depression: Yes Hx Suicide Attempt: Yes - HEMATOLOGY/ONCOLOGY Hx Hematology/Oncology Disorders: Yes 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:: melanoma-spot looks like it returned-right ankle Family Medical History Any Significant Family History?: Yes Hx Anxiety: Mother Hx Depression: Father, Mother, Children, Brother/Sister Hx Diabetes: Brother/Sister *Diabetes Comment: 2 sisters & 1 brother Hx Heart Disease: Father, Brother/Sister *Heart Comment: brother 3 MIs Hx Resp Disorders: Brother/Sister *Resp Comment: 3 sisters use CPAP @ nite Physical Exam - General General Appearance: Alert, Oriented x3, Cooperative, No acute distress Limitations: No limitations - Head Head exam: Atraumatic, Normocephalic, Normal inspection Head exam detail: negative: Abrasion, Contusion, Hematoma - Eye Eye exam: Normal appearance - ENT ENT exam: Normal exam Ear exam: Normal external inspection Nasal Exam: Normal inspection Mouth exam: Normal external inspection - Neck Neck exam: Normal inspection, Tenderness, Other (In C collar at this time) - Respiratory Respiratory exam: Normal lung sounds bilaterally. negative: Respiratory distress - Cardiovascular Cardiovascular Exam: Regular rate, Normal rhythm, Normal heart sounds Peripheral Pulses: 2+: Radial (R), Radial (L) - Rectal Rectal exam: Deferred - exam: Deferred - Extremities Extremities exam: Normal inspection, Full ROM, Joint swelling (5th digit right finger), Normal capillary refill - Neurological Neurological exam: Alert, CN II-XII intact, Oriented X3. negative: Altered, Motor sensory deficit - Psychiatric Psychiatric exam: Normal affect, Normal mood - Skin Skin exam: Dry, Intact, Normal color, Warm Course Vital Signs 01/01/18 06:48 Temperature 97.7 F Pulse Rate [ 71 Pulse Ox Probe] Respiratory 20 Rate Blood Pressure 131/65 [Left Arm] Pulse Ox 95 - Reevaluation(s) Reevaluation #1: 01/01/18 08:09 The hand XR's were reviewed. Post op change, degenerative changes. NO fractures or dislocations. 01/01/18 08:11 The HCT was read as no acute changes or injuries. NO changes from the prior examination 01/01/18 08:[address] was read as no acute changes or injures. NO changes from the prior examination Disposition Disposition: Discharge Clinical Impression: Head contusion Qualifiers: Encounter type: initial encounter Contusion of head detail: scalp Qualified Code(s): S00.03XA - Contusion of scalp, initial encounter Cervical strain, acute Qualifiers: Encounter type: initial encounter Qualified Code(s): S16.1XXA - Strain of muscle, fascia and tendon at neck level, initial encounter Disposition: Home, Self-Care Condition: (1) Good Instructions: Fall Prevention for Older Adults (ED) Additional Instructions: Call your doctor to discuss the recent falls, ED visits, and tests performed Use your walker at all times for support Forms: Patient Portal Access Time of Disposition: 08:17 Quality - Quality Measures Quality Measures: N/A - Geronimo Coma Scale Eye Response: (4) Open spontaneously Motor Response: (6) Obeys commands Verbal Response: (5) Oriented Geronimo Total: 15 - Blunt Head Trauma - Adult Was CT ordered: Yes Does Patient Have Any of the Following: No Exclusions Patient Presented Within 24 Hours of Injury: Yes Geronimo Score: [address] for Minor Blunt Head Trauma: < CT Done, Appropriate Indication > [G9529] Additional Inclusion Criteria: Within 24hrs (AND) GCS of 15 (AND) CT ordered. [ G9530] Indications For CT: Age 65 Years and Older Not Eligible Reason: Head CT For Trauma Ordered By Other Provider - Blood Pressure Screening Does Patient Have Any of the Following: Active Dx of HTN Blood Pressure Classification: Normal BP Reading Systolic Measurement: 112 Diastolic Measurement: 60 Screening for High Blood Pressure: Patient Exclusion, Hx of HTN [G9744]
--- NOTE | 2018-01-01 14:35 | RADIOLOGY REPORT ---
EXAM: LEFT SECOND DIGIT HISTORY: PAIN AT TIP OF INDEX FINGER TWO DAYS POST FALL. TECHNIQUE: Three views of the left second digit were obtained. Comparison: None. Encounter: Initial. FINDINGS: Mild diffuse osteopenia is present. No convincing acute fracture, dislocation, or destructive bone lesion is seen. There are mild osteoarthritic changes throughout the left second digit without periarticular erosion. Minor soft tissue swelling distally questioned. IMPRESSION: 1. NO ACUTE FRACTURE NOR DISLOCATION. MILD OSTEOARTHRITIC CHANGES. 2. MINOR DISTAL SOFT TISSUE SWELLING QUESTIONED. JOB NUMBER: [id number] [facility]
--- NOTE | 2018-01-01 14:49 | RADIOLOGY REPORT ---
EXAM: RIGHT FIFTH DIGIT, THREE VIEWS HISTORY: DIFFUSE FIFTH DIGIT PAIN TWO DAYS POST FALL. TECHNIQUE: Three views of the right fifth digit were obtained. Comparison: None. Encounter: Initial. FINDINGS: There is mild diffuse osteopenia. No acute fracture, dislocation or destructive bone lesion is seen. There are mild to moderate osteoarthritic changes of the fifth PIP joint and minimal degenerative spurring involving the fifth DIP joint as well as the fourth PIP and DIP joints. No periarticular erosion. There are degenerative changes of the visualized wrist. There is absence of the lunate, triquetrum, and possibly the scaphoid. Small ossific densities are noted near the anterolateral aspect of the radial carpal joint likely represent loose bodies. IMPRESSION: 1. NO ACUTE FRACTURE NOR DISLOCATION. OSTEOARTHRITIC CHANGES, DESCRIBED ABOVE. 2. APPARENT ABSENCE OF THE SCAPHOID, LUNATE, AND TRIQUETRUM, LIKELY POST SURGICAL. LOOSE BODIES WITHIN THE ANTEROLATERAL RADIAL CARPAL JOINT SPACE QUESTIONED. JOB NUMBER: [id number] [facility]
--- NOTE | 2018-01-01 14:54 | CT SCAN REPORT ---
EXAM: CT OF THE HEAD WITHOUT CONTRAST HISTORY: FALL TWO DAYS AGO NOW WITH NECK PAIN UPON TURNING HEAD. TECHNIQUE: Routine noncontrast CT examination of the head was obtained. Comparison: CT of the head without contrast dated 12/21/17. FINDINGS: The ventricles and subarachnoid spaces are normal in size for age. No new area of abnormally increased or decreased attenuation is noted throughout the brain substance. No new abnormal extraaxial fluid collection is seen. No asymmetric density of the middle cerebral arteries. Atherosclerotic calcification of the distal vertebral and distal internal carotid arteries redemonstrated. No skull fracture. The visualized paranasal sinuses and mastoid air cells are clear. The orbits as visualized are unremarkable. IMPRESSION: NO CT EVIDENCE OF AN ACUTE INTRACRANIAL ABNORMALITY NOR SKULL FRACTURE WITHOUT CHANGE IN APPEARANCE OF THE BRAIN SINCE 12/21/17. JOB NUMBER: [id number] [facility]
--- NOTE | 2018-01-01 15:03 | CT SCAN REPORT ---
EXAM: CT OF THE CERVICAL SPINE WITHOUT CONTRAST HISTORY: FALL 1-2 DAYS AGO. NOW WITH NECK PAIN WHEN TURNING HEAD. TECHNIQUE: Thin collimation helical CT examination of the cervical spine was performed in the axial plane without intravenous contrast. Coronal and sagittal reformatted images are generated and reviewed. Comparison: CT of the cervical spine without contrast dated 12/21/17. FINDINGS: There is mild diffuse osteopenia. The vertebral bodies are grossly normal in alignment and height. No acute fracture, destructive bone lesion, or prevertebral soft tissue swelling identified. Moderate osteoarthritic changes of the atlantodental joint redemonstrated. Multilevel degenerative disk/degenerative end plate changes are present most pronounced at the C4-C5 and C6-C7 levels where the changes are moderate in degree. A disk space complex at the C6-C7 level is identified excentric to the left. No gross central canal stenosis is seen though the far left paracentral disk spur complex does appear to cause severe left neural foraminal narrowing, stable. Multilevel bilateral facet arthropathy is present most pronounced on the left at the C3-C4, C4-C5, and C5-C6 levels where it is moderate to advanced. On the right the facet degenerative changes are most pronounced at the C4-C5 and C5-C6 levels where they are moderate to advanced. These findings are stable. No perched facet. Multilevel bilateral neural foraminal narrowing redemonstrated due to facet arthropathy and uncovertebral joint spurring. Again, this is most pronounced at the C6-C7 level on the left. No cervical mass nor adenopathy. No suspicious perivertebral soft tissue abnormality. There is mild atherosclerotic calcification of the distal common carotid arteries and proximal right internal carotid artery. Mild biapical lung scarring. IMPRESSION: 1. NO ACUTE FRACTURE, SUBLUXATION, OR PREVERTEBRAL SOFT TISSUE SWELLING WITHOUT CHANGE IN APPEARANCE OF THE CERVICAL SPINE SINCE 12/21/17. 2. MULTILEVEL DEGENERATIVE CHANGES REDEMONSTRATED, DISCUSSED ABOVE. JOB NUMBER: [id number] [facility]
== END 2018-01-01 08:34 | disposition home or self-care (01) ==
LOC: ER 06:31
DX: S00.03XA Contusion of scalp, initial encounter (principal); S16.1XXA Strain of muscle, fascia and tendon at neck level, initial encounter; M54.2 Cervicalgia; R51 Headache; M79.645 Pain in left finger(s); M79.644 Pain in right finger(s); R20.2 Paresthesia of skin; W01.198A Fall on same level from slipping, tripping and stumbling with subsequent striking against other object, initial encounter; Z91.81 History of falling; Y93.E1 Activity, personal bathing and showering; Y92.002 Bathroom of unspecified non-institutional (private) residence as the place of occurrence of the external cause; G20 Parkinson's disease; F02.80 Dementia in other diseases classified elsewhere, unspecified severity, without behavioral disturbance, psychotic disturbance, mood disturbance, and anxiety; I10 Essential (primary) hypertension
CPT/HCPCS: 70450; 72125; 73140; 99283; 99284

== ENCOUNTER 2018-07-02 11:36 | Emergency (ER) | payer MEDICARE, OTHER ==
[2018-07-02 12:31] LABS: BASO % 0.3 % (0-6); GRAN % 52.1 % (47-80); HEMATOCRIT 40.1 % (35.0-47.0); HEMOGLOBIN 12.8 gm/dl (11.6-16.0); LYMPH % 40.3 % (16-45); MEAN CELL VOLUME 95.5 fl (81-97); MEAN CORPUSCULAR HEMOGLOBIN 30.5 pg (27-33); MEAN CORPUSCULAR HGB CONC 31.9 g/dl (32-36); MEAN PLATELET VOLUME 10.7 fl (7.4-10.4); MONO % 5.3 % (0-9); PLATELET COUNT 167 K/uL (130-400); WHITE BLOOD COUNT W/O DIFF 7.4 K/uL (4.2-12.2)
[2018-07-02 12:41] LABS: BILIRUBIN,TOTAL 0.3 mg/dL (0.2-1.0)
[2018-07-02 12:42] LABS: TOTAL PROTEIN 6.8 g/dL (6.6-8.7)
[2018-07-02 12:46] LABS: ALB/GLOB RATIO 1.7 (1.1-1.8); ALBUMIN 4.3 g/dL (4.0-5.0)
--- NOTE | 2018-07-02 13:11 | Emergency Department Record ---
History of Present Illness - General Chief Complaint: Fall Injury Stated Complaint: FALL X3 YESTERDAY Time Seen by Provider: 07/02/18 11:58 Source: Patient Mode of Arrival: Wheelchair Limitations: No limitations - History of Present Illness Initial Comments: pt has had multiple falls the last 2 days and has pain all over. she has had problems w her balance for a long time. her most severe pain is in her neck, head and knees. MD Complaint: Fall Onset/Timin -: Days(s) When Fall Occurred: 24 hours DEVELOPMENT REPRESENTATIVE Fall Witnessed: No Place Fall Occurred: Home Loss of Consciousness: Unsure Prolonged Down Time?: Unclear Symptoms Prior to Fall: None Location: Head, Back Severity scale (1-10): 7 Quality: Aching Context: History of frequent falls Associated Symptoms: Denies - Chadron Coma Scale Eye Response: (4) Open spontaneously Motor Response: (6) Obeys commands Verbal Response: (5) Oriented Chadron Total: 15 - Related Data Home Medications Medication Instructions Recorded Confirmed Last Taken Cyanocobalamin (Vitamin B-12) 2,500 mcg PO DAILY 07/02/18 07/02/18 Unknown [Vitamin B12] Allergies Allergy/AdvReac Type Severity Reaction Status Date / Time latex [LATEX] Allergy Intermediate HIVES Verified 12/21/17 07:27 Sulfa (Sulfonamide Allergy Intermediate HIVES Verified 12/21/17 07:27 Antibiotics) [SULFA (SULFONAMIDE ANTIBIOTICS)] tioconazole AdvReac pain Verified 12/21/17 07:27 [From Monistat 1 (tioconazole)] Travel Screening - Travel/Exposure Within Last 30 Days Have you traveled within the last 30 days?: No Review of Systems Reviewed: No additional complaints except as noted below Constitutional: Reports: As per HPI. Denies: Chills, Fever, Malaise, Night sweats, Weakness, Weight change Eyes: Reports: As per HPI. Denies: Eye discharge, Eye pain, Photophobia, Vision change ENT: Reports: As per HPI. Denies: Congestion, Dental pain, Ear pain, Epistaxis , Hearing loss, Throat pain Respiratory: Reports: As per HPI. Denies: Cough, Dyspnea, Hemoptysis, Stridor, Wheezes Cardiovascular: Reports: As per HPI. Denies: Arrhythmia, Chest pain, Dyspnea on exertion, Edema, Murmurs, Orthopnea, Palpitations, Paroxysmal nocturnal dyspnea, Rheumatic Fever, Syncope Endocrine: Reports: As per HPI. Denies: Fatigue, Heat or cold intolerance, Polydipsia, Polyuria Gastrointestinal: Reports: As per HPI. Denies: Abdominal pain, Constipation, Diarrhea, Hematemesis, Hematochezia, Melena, Nausea, Vomiting Genitourinary: Reports: As per HPI. Denies: Abnormal menses, Discharge, Dyspareunia, Dysuria, Frequency, Hematuria, Incontinence, Retention, Urgency Musculoskeletal: Reports: As per HPI, Arthralgia, Back pain, Myalgia, Neck pain. Denies: Gout, Joint swelling Skin: Reports: As per HPI. Denies: Bruising, Change in color, Change in hair/ nails, Lesions, Pruritus, Rash Neurological: Reports: As per HPI. Denies: Abnormal gait, Confusion, Headache, Numbness, Paresthesias, Seizure, Tingling, Tremors, Vertigo, Weakness Psychiatric: Reports: As per HPI. Denies: Anxiety, Auditory hallucinations, Depression, Homicidal thoughts, Suicidal thoughts, Visual hallucinations Hematological/Lymphatic: Reports: As per HPI. Denies: Anemia, Blood Clots, Easy bleeding, Easy bruising, Swollen glands Past Medical History - SOCIAL HISTORY Smoking Status: Never smoker - RESPIRATORY Hx Respiratory Disorders: Yes Hx Sleep Apnea: Yes (needs testing) Hx of CPAP: No Comment:: has sinus problems-common sinus infections-clear sinus drainage - CARDIOVASCULAR Hx Cardio Disorders: Yes Hx Edema: Yes Hx Hypertension: Yes Comment:: heart murmur - NEURO Hx Neuro Disorders: Yes Hx Brain Tumor: Yes (20 yrs ago "pinpoint"-many CAT scans-no problems) Hx Dementia: Yes (on meds) Hx Dizziness: Yes ("comes & goes"/thyroid related) Hx Headaches: Yes (sinus related) Hx Neuropathy: Yes (hands&feet) Hx Parkinson's Disease: Yes (trembling of hands) Comment:: 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 - GI Hx GI Disorders: Yes Hx Abdominal Pain: Yes (diverticulosis) Hx Diverticulitis: Yes Hx Reflux: Yes Hx Hiatal Hernia: Yes Hx Irritable Bowel: Yes Hx Obstructive Bowel: Yes Hx Wt Loss/Wt Gain: Yes - Hx Genitourinary Disorders: Yes Hx Bladder Problem: Yes (incontinence x 2 years) Hx Kidney Stones: Yes Comment:: hyst - ENDOCRINE Hx Endocrine Disorders: Yes Hx Thyroid Disease: Yes (hypo) - MUSCULOSKELETAL Hx Musculoskeletal Disorders: Yes Hx Arthritis: Yes (hands/knees/elbows/back & hips) Hx Back Injury: Yes (sees chiropractor) Hx Osteoporosis: Yes - PSYCH Hx Psych Problems: Yes Hx Anxiety: Yes Hx Depression: Yes Hx Suicide Attempt: Yes - HEMATOLOGY/ONCOLOGY Hx Hematology/Oncology Disorders: Yes 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:: melanoma-spot looks like it returned-right ankle Family Medical History Any Significant Family History?: Yes Hx Anxiety: Mother Hx Depression: Father, Mother, Children, Brother/Sister Hx Diabetes: Brother/Sister *Diabetes Comment: 2 sisters & 1 brother Hx Heart Disease: Father, Brother/Sister *Heart Comment: brother 3 MIs Hx Resp Disorders: Brother/Sister *Resp Comment: 3 sisters use CPAP @ nite Physical Exam - General General Appearance: Alert, Oriented x3, Cooperative, Mild distress - Head Head exam: Normal inspection Head exam detail: General tenderness - Eye Eye exam: Normal appearance, PERRL, EOMI Pupils: Normal accommodation - ENT ENT exam: Normal exam, Mucous membranes moist, Normal external ear exam, Normal orophraynx Ear exam: Normal external inspection. negative: External canal tenderness Nasal Exam: Normal inspection. negative: Discharge, Sinus tenderness Mouth exam: Normal external inspection, Tongue normal Teeth exam: Normal inspection. negative: Dental caries Throat exam: Normal inspection. negative: Tonsillar erythema, Tonsillar exudate - Neck Neck exam: Full ROM, Tenderness - Respiratory Respiratory exam: Normal lung sounds bilaterally. negative: Respiratory distress - Cardiovascular Cardiovascular Exam: Regular rate, Normal rhythm, Systolic murmur - GI/Abdominal GI/Abdominal exam: Soft, Normal bowel sounds. negative: Tenderness - Rectal Rectal exam: Deferred - exam: Deferred - Extremities Extremities exam: Full ROM, Normal capillary refill, Tenderness - Back Back exam: Reports: Normal inspection, Full ROM. Denies: Muscle spasm, Rash noted, Tenderness - Neurological Neurological exam: Alert, CN II-XII intact, Normal gait, Oriented X3 - Psychiatric Psychiatric exam: Normal affect, Normal mood - Skin Skin exam: Dry, Intact, Normal color, Warm Course Vital Signs 07/02/18 11:49 Temperature 98.0 F Pulse Rate 65 Respiratory 20 Rate Blood Pressure 158/73 Pulse Ox 98 Medical Decision Making - Lab Data Result diagrams: 07/02/18 12:25 07/02/18 12:25 Lab Results 07/02/18 07/02/18 Range/Units 12:25 12:25 WBC 7.4 (4.2-12.2) K/uL RBC 4.20 (3.80-5.40) M/uL Hgb 12.8 (11.6-16.0) gm/dl Hct 40.1 (35.0-47.0) % MCV 95.5 (81-97) fl MCH 30.5 (27-33) pg MCHC 31.9 L (32-36) g/dl RDW 16.0 H (11.5-14.5) % Plt Count 167 (130-400) K/uL MPV 10.7 H (7.4-10.4) fl Gran % 52.1 (47-80) % Lymphocytes % 40.3 (16-45) % Monocytes % 5.3 (0-9) % Eosinophils % 2.0 (0-6) % Basophils % 0.3 (0-6) % Sodium 142 (136-145) mmol/L Potassium 4.6 H (3.4-4.5) mmol/L Chloride 102 (98-107) mmol/L Carbon Dioxide 27.0 (22-29) mmol/L Anion Gap 13.0 (7-16) BUN 22 (8-23) mg/dL Creatinine 1.0 H (0.5-0.9) mg/dL Estimated GFR 58 mL/min Random Glucose 106 (74-109) mg/dL Calcium 9.3 (8.8-10.2) mg/dL Total Bilirubin 0.30 (0.2-1.0) mg/dL AST 26 (10.0-35.0) U/L ALT 24 (<33) U/L Alkaline Phosphatase 136 H (45-87) U/L Creatine Kinase 144 (26-192) U/L Total Protein 6.8 (6.6-8.7) g/dL Albumin 4.3 (4.0-5.0) g/dL Globulin 2.5 (1.4-4.8) gm/dL Albumin/Globulin Ratio 1.7 (1.1-1.8) Disposition Disposition: Discharge Clinical Impression: Falls frequently, Multiple contusions Disposition: Home, Self-Care Condition: (1) Good Instructions: Fall Prevention for Older Adults (ED), Contusion in Adults (ED) Additional Instructions: follow up with family doctor and neurologist this week. return sooner if worse. ice to sore areas. use walker. Forms: Patient Portal Access Quality - Quality Measures Quality Measures: N/A - Blood Pressure Screening Does Patient Have Any of the Following: No Blood Pressure Classification: Hypertensive Reading Systolic Measurement: 158 Diastolic Measurement: 73 Screening for High Blood Pressure: < First Hypertensive BP, F/U Documented > [ G8950] First Hypertensive Follow-up Interventions: Follow-up with rescreen GT 1 day and LT 4 weeks.
[2018-07-02 14:11] LABS: URINE APPEARANCE CLEAR; URINE BILIRUBIN NEGATIVE (NEGATIVE); URINE BLOOD NEGATIVE (NEGATIVE); URINE COLOR YELLOW; URINE GLUCOSE (UA) NEGATIVE (NEGATIVE); URINE KETONE NEGATIVE (NEGATIVE); URINE LEUKOCYTE ESTERASE TRACE (NEGATIVE); URINE NITRITE NEGATIVE (NEGATIVE); URINE PROTEIN NEGATIVE (NEGATIVE); URINE UROBILINOGEN 0.2 E.U./dL (0.20 - 1.00)
[2018-07-02] MEDS ORDERED: KETOROLAC 30 MG/ML VIAL IVP ONE (14:20)
[2018-07-02 14:21] LABS: URINE BACTERIA FEW; URINE EPITHELIAL CELLS >50 (FEW); URINE RBC NONE SEEN (NONE SEEN); URINE WBC 0 - 2 (0-2/hpf)
[2018-07-02] MEDS ORDERED: 0.9 % SODIUM CHLORIDE 1,000 ML BAG IV ONE (14:21)
--- NOTE | 2018-07-03 10:16 | CT SCAN REPORT ---
EXAM: CT OF THE BRAIN WITHOUT CONTRAST HISTORY: INJURY. TECHNIQUE: Sequential axial images were obtained from the foramen magnum through the vertex without contrast administration. FINDINGS: The brain volume is normal. No large territorial infarct, hemorrhage , mass effect, or midline shift. No extraaxial fluid collection. The orbits, paranasal sinuses, and mastoid air cells are normal. IMPRESSION: NO ACUTE INTRACRANIAL ABNORMALITY IS APPRECIATED. JOB [facility]BER: [id number] [facility]
--- NOTE | 2018-07-03 10:19 | CT SCAN REPORT ---
EXAM: CT OF THE CERVICAL SPINE WITHOUT CONTRAST HISTORY: FALL. TECHNIQUE: Sequential axial images were obtained through the cervical spine without intravenous contrast administration. Sagittal and coronal reformatted images were performed. FINDINGS: There is multilevel degenerative change. No evidence of fracture, subluxation or perched facet. IMPRESSION: NO EVIDENCE OF FRACTURE, SUBLUXATION, OR PERCHED FACET. MULTILEVEL DEGENERATIVE CHANGE. JOB NUMBER: [id number] [facility]
--- NOTE | 2018-07-03 10:45 | RADIOLOGY REPORT ---
EXAM: LEFT KNEE HISTORY: PAIN. TECHNIQUE: Two views of the left knee were performed. FINDINGS: No evidence of fracture or dislocation. No lytic or blastic lesion. No joint effusion. IMPRESSION: NEGATIVE LEFT KNEE EXAMINATION. J[facility]BER: [id number] [facility]
--- NOTE | 2018-07-03 10:46 | RADIOLOGY REPORT ---
EXAM: RIGHT KNEE HISTORY: PAIN. TECHNIQUE: Two views of the right knee were performed. FINDINGS: There is mild degenerative change. No evidence of fracture or dislocation. No joint effusion. IMPRESSION: MILD DEGENERATIVE CHANGE, OTHERWISE NEGATIVE EXAMINATION. J[facility]BER: [id number] [facility]
--- NOTE | 2018-07-03 10:47 | RADIOLOGY REPORT ---
EXAM: AP PELVIS HISTORY: PAIN. TECHNIQUE: A single AP view of the pelvis was performed. FINDINGS: No evidence of fracture or dislocation. No lytic or blastic lesion. IMPRESSION: NEGATIVE AP PELVIS EXAMINATION. JOB NUMBER: [id number] [facility]
== END 2018-07-02 15:56 | disposition home or self-care (01) ==
LOC: ER 11:36
DX: S10.93XA Contusion of unspecified part of neck, initial encounter (principal); S00.93XA Contusion of unspecified part of head, initial encounter; S80.02XA Contusion of left knee, initial encounter; S80.01XA Contusion of right knee, initial encounter; S30.0XXA Contusion of lower back and pelvis, initial encounter; I10 Essential (primary) hypertension; Z91.81 History of falling; W19.XXXA Unspecified fall, initial encounter; Y92.009 Unspecified place in unspecified non-institutional (private) residence as the place of occurrence of the external cause
CPT/HCPCS: 70450; 72125; 72170; 80053; 81001; 82550; 85025; 96374; 99284; J1885; J7030

== ENCOUNTER 2018-07-08 16:01 | Emergency (ER) | payer MEDICARE ==
--- NOTE | 2018-07-08 16:37 | Emergency Department Record ---
History of Present Illness - General Chief complaint: Extremity Problem Stated complaint: rt foot pain Time Seen by Provider: 07/08/18 16:11 Source: Patient, Family Mode of Arrival: Ambulatory Limitations: No limitations - History of Present Illness Initial comments: The patient is here due to tripping and falling at home this AM and injuring her R foot. She denies any other injuries. The foot is painful with weight bearing. There is no R knee or ankle pain. MD Complaint: Extremity pain Onset/Timin -: Hour(s) Location: Right, Foot Severity scale (1-10): 7 Quality: Aching, Burning, Crushing, Sharp, Stabbing Consistency: Constant Improves with: Nothing Worsens with: Walking, Weight bearing - Related Data Allergies Allergy/AdvReac Type Severity Reaction Status Date / Time latex [LATEX] Allergy Intermediate HIVES Verified 12/21/17 07:27 Sulfa (Sulfonamide Allergy Intermediate HIVES Verified 12/21/17 07:27 Antibiotics) [SULFA (SULFONAMIDE ANTIBIOTICS)] tioconazole AdvReac pain Verified 12/21/17 07:27 [From Monistat 1 (tioconazole)] Travel Screening - Travel/Exposure Within Last 30 Days Have you traveled within the last 30 days?: No - Travel/Exposure Within Last Year Have you traveled outside the [place] in the last year?: No - Additonal Travel Details Have you been exposed to anyone with a communicable illness?: No - Travel Symptoms Symptom Screening: None Review of Systems Constitutional: Denies: Chills, Fever Eyes: Denies: Eye discharge ENT: Denies: Congestion Respiratory: Denies: Cough, Dyspnea Past Medical History - SOCIAL HISTORY Smoking Status: Never smoker Alcohol Use: None Drug Use: None - RESPIRATORY Hx Respiratory Disorders: Yes Hx Sleep Apnea: Yes (needs testing) Hx of CPAP: No Comment:: has sinus problems-common sinus infections-clear sinus drainage - CARDIOVASCULAR Hx Cardio Disorders: Yes Hx Edema: Yes Hx Hypertension: Yes Comment:: heart murmur - NEURO Hx Neuro Disorders: Yes Hx Brain Tumor: Yes (20 yrs ago "pinpoint"-many CAT scans-no problems) Hx Dementia: Yes (on meds) Hx Dizziness: Yes ("comes & goes"/thyroid related) Hx Headaches: Yes (sinus related) Hx Neuropathy: Yes (hands&feet) Hx Parkinson's Disease: Yes (trembling of hands) Comment:: 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 - GI Hx GI Disorders: Yes Hx Abdominal Pain: Yes (diverticulosis) Hx Diverticulitis: Yes Hx Reflux: Yes Hx Hiatal Hernia: Yes Hx Irritable Bowel: Yes Hx Obstructive Bowel: Yes Hx Wt Loss/Wt Gain: Yes - Hx Genitourinary Disorders: Yes Hx Bladder Problem: Yes (incontinence x 2 years) Hx Kidney Stones: Yes Comment:: hyst - ENDOCRINE Hx Endocrine Disorders: Yes Hx Thyroid Disease: Yes (hypo) - MUSCULOSKELETAL Hx Musculoskeletal Disorders: Yes Hx Arthritis: Yes (hands/knees/elbows/back & hips) Hx Back Injury: Yes (sees chiropractor) Hx Osteoporosis: Yes - PSYCH Hx Psych Problems: Yes Hx Anxiety: Yes Hx Depression: Yes Hx Suicide Attempt: Yes - HEMATOLOGY/ONCOLOGY Hx Hematology/Oncology Disorders: Yes 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:: melanoma-spot looks like it returned-right ankle Family Medical History Any Significant Family History?: Yes Hx Anxiety: Mother Hx Depression: Father, Mother, Children, Brother/Sister Hx Diabetes: Brother/Sister *Diabetes Comment: 2 sisters & 1 brother Hx Heart Disease: Father, Brother/Sister *Heart Comment: brother 3 MIs Hx Resp Disorders: Brother/Sister *Resp Comment: 3 sisters use CPAP @ nite Physical Exam - General General Appearance: Alert, Cooperative, No acute distress - Head Head exam: Atraumatic, Normocephalic, Normal inspection - Eye Eye exam: Normal appearance, PERRL - Extremities Extremities exam: Normal inspection (There is mild dorsal foot bruising present but no swelling.), Full ROM, Normal capillary refill, Tenderness (There is diffuse tenderness to the plantar surface of the R foot. There is no ankle or knee tenderness.). negative: Joint swelling Course Vital Signs 07/08/18 16:11 Temperature 97.7 F Pulse Rate 74 Respiratory 20 Rate Blood Pressure 159/86 Pulse Ox 97 - Reevaluation(s) Reevaluation #1: I did discuss the need for icing and elevating the R foot when possible and to use the walking boot at all times with her walker. She is to see Dr. Corrales in the Specialty clinic later this week for recheck. 07/08/18 17:19 Medical Decision Making - Data Complexity MDM Data: X-Ray Ordered and/or Reviewed - Radiology Data Radiology results: Report reviewed (R foot: transverse fractures of the R distal 4th and 5th MT bones with mild displacement.) Disposition Disposition: Discharge Clinical Impression: Foot fracture, right Qualifiers: Encounter type: initial encounter Fracture type: closed Qualified Code(s): S92.901A - Unspecified fracture of right foot, initial encounter for closed fracture Disposition: Home, Self-Care Condition: (2) Stable Instructions: Foot Fracture in Adults (ED) Additional Instructions: Please ice and elevate the foot when possible and use the walking boot at all times for walking. Please take your home pain medicines as needed and see Dr. Corrales in the Specialty Clinic later this week for recheck. Return to the ER for any worsening symptoms. Referrals: [facility] [Provider Group] Forms: Patient Portal Access Time of Disposition: 17:21 Quality - Quality Measures Quality Measures: N/A - Blood Pressure Screening View Details: Yes Does Patient Have Any of the Following: No Blood Pressure Classification: Pre-Hypertensive BP Reading Systolic Measurement: 159 Diastolic Measurement: 86 Screening for High Blood Pressure: < Pre-Hypertensive BP, F/U Documented > [ G8950] Pre-Hypertensive Follow-up Interventions: Referral to alternative/primary care provider.
[2018-07-08] MEDS ORDERED: ACETAMINOPHEN 325 MG TAB PO ONE (16:46)
--- NOTE | 2018-07-09 07:35 | RADIOLOGY REPORT ---
EXAM: RIGHT FOOT HISTORY: FELL TODAY. PAIN ACROSS THE FOOT. TECHNIQUE: Three views of the right foot were obtained. Comparison: None. FINDINGS: There are minimally displaced fractures involving the fourth and fifth metatarsal necks. There is very slight dorsal displacement of the distal fragments. The remaining osseous and articular structures appear intact. Mild degenerative changes and hallux valgus deformity are noted at the first metatarsal phalangeal joint. IMPRESSION: MINIMALLY DISPLACED FRACTURES INVOLVING THE FOURTH AND FIFTH METATARSAL NECKS. JOB NUMBER: [id number] [facility]
== END 2018-07-08 17:37 | disposition home or self-care (01) ==
LOC: ER 16:01
DX: S92.341A Displaced fracture of fourth metatarsal bone, right foot, initial encounter for closed fracture (principal); S92.351A Displaced fracture of fifth metatarsal bone, right foot, initial encounter for closed fracture; W01.0XXA Fall on same level from slipping, tripping and stumbling without subsequent striking against object, initial encounter; Y92.009 Unspecified place in unspecified non-institutional (private) residence as the place of occurrence of the external cause; I10 Essential (primary) hypertension
CPT/HCPCS: 99283

== ENCOUNTER 2018-07-30 11:47 | Emergency (ER) | payer MEDICARE, OTHER ==
[2018-07-30] MEDS ORDERED: LORAZEPAM 2 MG/ML VIAL IV ONE (12:02)
[2018-07-30] MEDS ORDERED: 0.9 % SODIUM CHLORIDE 1,000 ML BAG IV ONE (12:02)
--- NOTE | 2018-07-30 12:08 | Emergency Department Record ---
Anxiety - General Stated Complaint: ANXIETY/PONCHO Time Seen by Provider: 07/30/18 12:01 Source: Patient, Family (Grand daughter in room ) Mode of Arrival: Stretcher Limitations: No limitations - History of Present Illness Initial Comments: Pt to ED from home where she lives with her daughter. Complaint is "panic attack". Pt has been having issues with Panic over the last month. She relates a "life long" hx of depression but denies suicidal thoughts currently. She denies recent illness, fever, cough, N/V, CP. Has been in a left lower ext walker boot for two weeks for "broken toes". Pt states she has nothing on her mind that she attributes the panic to but repeats that she is afraid that she will fall. Complaint: Anxiety Onset/Timin -: Days(s) Place: Home Previous History of Same: Yes Severity: Moderate Quality: Constant, Similar to prior episodes Provoking factors: None known Associated symptoms: Denies other symptoms - Related Data Home Medications: Previous Rx's Medication Instructions Recorded Alprazolam [Xanax] 0.25 mg PO Q8HR PRN 3 Days #6 07/30/18 tablet Allergies/Adverse Reactions: Allergies Allergy/AdvReac Type Severity Reaction Status Date / Time latex [LATEX] Allergy Intermediate HIVES Verified 07/30/18 12:33 Sulfa (Sulfonamide Allergy Intermediate HIVES Verified 07/30/18 12:33 Antibiotics) [SULFA (SULFONAMIDE ANTIBIOTICS)] tioconazole AdvReac pain Verified 07/30/18 12:33 [From Monistat 1 (tioconazole)] Review of Systems Constitutional: Denies: Chills, Fever, Weakness Eyes: Denies: Eye discharge, Eye pain, Photophobia ENT: Denies: Congestion, Ear pain, Hearing loss Respiratory: Denies: Cough, Dyspnea, Wheezes Cardiovascular: Denies: Arrhythmia, Chest pain, Syncope Endocrine: Denies: Fatigue, Polyuria Gastrointestinal: Denies: Abdominal pain, Diarrhea, Nausea, Vomiting Musculoskeletal: Denies: Arthralgia, Back pain Skin: Denies: Bruising, Rash Neurological: Denies: Headache, Paresthesias, Vertigo Psychiatric: Reports: As per HPI, Anxiety, Depression. Denies: Homicidal thoughts, Suicidal thoughts Hematological/Lymphatic: Denies: Anemia Past Medical History - SOCIAL HISTORY Smoking Status: Never smoker Drug Use: None - RESPIRATORY Hx Respiratory Disorders: Yes Hx Sleep Apnea: Yes (needs testing) Hx of CPAP: No Comment:: has sinus problems-common sinus infections-clear sinus drainage - CARDIOVASCULAR Hx Cardio Disorders: Yes Hx Edema: Yes Hx Hypertension: Yes Comment:: heart murmur - NEURO Hx Neuro Disorders: Yes Hx Brain Tumor: Yes (20 yrs ago "pinpoint"-many CAT scans-no problems) Hx Dementia: Yes (on meds) Hx Dizziness: Yes ("comes & goes"/thyroid related) Hx Headaches: Yes (sinus related) Hx Neuropathy: Yes (hands&feet) Hx Parkinson's Disease: Yes (trembling of hands) Comment:: 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 - GI Hx GI Disorders: Yes Hx Abdominal Pain: Yes (diverticulosis) Hx Diverticulitis: Yes Hx Reflux: Yes Hx Hiatal Hernia: Yes Hx Irritable Bowel: Yes Hx Obstructive Bowel: Yes Hx Wt Loss/Wt Gain: Yes - Hx Genitourinary Disorders: Yes Hx Bladder Problem: Yes (incontinence x 2 years) Hx Kidney Stones: Yes Comment:: hyst - ENDOCRINE Hx Endocrine Disorders: Yes Hx Thyroid Disease: Yes (hypo) - MUSCULOSKELETAL Hx Musculoskeletal Disorders: Yes Hx Arthritis: Yes (hands/knees/elbows/back & hips) Hx Back Injury: Yes (sees chiropractor) Hx Osteoporosis: Yes - PSYCH Hx Psych Problems: Yes Hx Anxiety: Yes Hx Depression: Yes Hx Suicide Attempt: Yes - HEMATOLOGY/ONCOLOGY Hx Hematology/Oncology Disorders: Yes 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:: melanoma-spot looks like it returned-right ankle Family Medical History Hx Anxiety: Mother Hx Depression: Father, Mother, Children, Brother/Sister Hx Diabetes: Brother/Sister *Diabetes Comment: 2 sisters & 1 brother Hx Heart Disease: Father, Brother/Sister *Heart Comment: brother 3 MIs Hx Resp Disorders: Brother/Sister *Resp Comment: 3 sisters use CPAP @ nite Physical Exam - General General Appearance: Alert, Oriented x3, Cooperative, Moderate distress, Anxious Limitations: No limitations - Head Head exam: Atraumatic, Normal inspection Head exam detail: negative: Contusion - Eye Eye exam: Normal appearance, PERRL - ENT ENT exam: Normal exam, Mucous membranes moist, Normal external ear exam, Normal orophraynx, TM's normal bilaterally - Neck Neck exam: Normal inspection, Full ROM. negative: Tenderness - Respiratory Respiratory exam: Normal lung sounds bilaterally. negative: Respiratory distress, Rhonchi, Wheezes - Cardiovascular Cardiovascular Exam: Regular rate, Normal rhythm, Normal heart sounds. negative : Tachycardia Peripheral Pulses: 2+: Radial (R), Radial (L) - GI/Abdominal GI/Abdominal exam: Soft, Normal bowel sounds. negative: Guarding, Tenderness - Extremities Extremities exam: Normal inspection, Full ROM, Normal capillary refill, Other ( walker boot on right lower ext. ). negative: Tenderness - Back Back exam: Reports: Normal inspection, Full ROM. Denies: Muscle spasm, Rash noted, Tenderness - Neurological Neurological exam: Alert, Normal gait, Oriented X3 - Psychiatric Psychiatric exam: Anxious - Skin Skin exam: Normal color. negative: Rash Course - Reevaluation(s) Reevaluation #1: 07/30/18 13:00 labs and tests reviewed. Discussed with pt and daughter. Feeling better. Home with Xanax and follow up with family doctor. Procedures - EKG Initial Date: 07/30/18 Time: 12:43 EKG: Abnormal EKG (SR at 79, RBBB, motion artifact. ) Medical Decision Making - Management Options MDM Management: No Additional Work-up Planned - Data Complexity MDM Data: Labs Ordered and/or Reviewed, X-Ray Ordered and/or Reviewed, EKG Ordered and/or Reviewed, Independent Visualization of Image, Tracing, or Specimen - Lab Data Result diagrams: 07/30/18 12:00 07/30/18 12:00 - EKG Data EKG: No Acute Changes - Radiology Data Radiology results: Image reviewed Disposition Disposition: Discharge Clinical Impression: Anxiety Disposition: Home, Self-Care Condition: (1) Good Instructions: Anxiety (ED) Prescriptions: Alprazolam [Xanax] 0.25 mg PO Q8HR PRN 3 Days #6 tablet PRN Reason: Anxiety Time of Disposition: 13:05 Quality - Quality Measures Quality Measures: N/A - Blood Pressure Screening Does Patient Have Any of the Following: No, Active Dx of HTN Systolic Measurement: ~ Screening for High Blood Pressure: Patient Exclusion, Hx of HTN [G9744]
[2018-07-30 12:09] LABS: BASO % 0.3 % (0-6); EOS % 0.9 % (0-6); GRAN % 61.1 % (47-80); HEMATOCRIT 43.8 % (35.0-47.0); HEMOGLOBIN 14.3 gm/dl (11.6-16.0); LYMPH % 32.1 % (16-45); MEAN CELL VOLUME 94.2 fl (81-97); MEAN CORPUSCULAR HEMOGLOBIN 30.8 pg (27-33); MEAN CORPUSCULAR HGB CONC 32.6 g/dl (32-36); MEAN PLATELET VOLUME 10.6 fl (7.4-10.4); MONO % 5.6 % (0-9); PLATELET COUNT 198 K/uL (130-400); RED BLOOD COUNT 4.65 M/uL (3.80-5.40); RED CELL DISTRIBUTION WIDTH 15.2 % (11.5-14.5); WHITE BLOOD COUNT W/O DIFF 9.5 K/uL (4.2-12.2)
[2018-07-30 12:19] LABS: BLOOD UREA NITROGEN 27 mg/dL (8-23); CREATININE 0.9 mg/dL (0.5-0.9); EST GLOMERULAR FILTRATION RATE > 60 mL/min
[2018-07-30 12:22] LABS: GLUCOSE,RANDOM 115 mg/dL (74-109)
[2018-07-30 12:22] LABS: URINE APPEARANCE CLEAR; URINE BILIRUBIN NEGATIVE (NEGATIVE); URINE BLOOD NEGATIVE (NEGATIVE); URINE COLOR YELLOW; URINE GLUCOSE (UA) NEGATIVE (NEGATIVE); URINE KETONE NEGATIVE (NEGATIVE); URINE LEUKOCYTE ESTERASE NEGATIVE (NEGATIVE); URINE NITRITE NEGATIVE (NEGATIVE); URINE PROTEIN NEGATIVE (NEGATIVE); URINE UROBILINOGEN 0.2 E.U./dL (0.20 - 1.00)
--- NOTE | 2018-08-01 15:06 | RADIOLOGY REPORT ---
EXAM: CHEST, TWO VIEWS HISTORY: ANXIETY, SHORTNESS OF BREATH. TECHNIQUE: Two views of the chest were obtained. Comparison: Thoracic spine radiographs 12/21/17. FINDINGS: The cardiac silhouette is stable from prior. No definite focal pulmonary consolidation. Mild atelectasis in both lung bases. No significant pleural fluid collection appreciated. No visible pneumothorax. Surgical clips in the lower mediastinal region. Asymmetric widening between the posterior left seventh and eighth ribs, similar in appearance from 12/21/17 thoracic spine radiographs. IMPRESSION: 1. NO ACUTE LUNG FINDINGS. 2. NOTE OF ASYMMETRIC WIDENING BETWEEN THE POSTERIOR LEFT SEVENTH AND EIGHTH RIBS, SIMILAR IN APPEARANCE FROM THORACIC SPINE RADIOGRAPHS ON 12/21/17. THE FINDING COULD BE RELATED TO PREVIOUS SURGERY OR AN UNDERLYING INTERCOSTAL SPACE OCCUPYING ABNORMALITY. RECOMMEND CORRELATION WITH PATIENT HISTORY. IF WARRANTED, CT FOLLOW-UP COULD BE OBTAINED. JOB NUMBER: [id number] MTDD
== END 2018-07-30 13:23 | disposition home or self-care (01) ==
LOC: ER 11:47
DX: F41.0 Panic disorder [episodic paroxysmal anxiety] (principal); I10 Essential (primary) hypertension
CPT/HCPCS: 99284 ×2; 96374; 85025; 80048; 81003; 84484; 85379; 71046; 93005; 93010; J2060; J7030

== ENCOUNTER 2018-08-09 20:19 | Emergency (ER) | payer MEDICARE ==
--- NOTE | 2018-08-09 20:40 | Emergency Department Record ---
History of Present Illness - General Chief Complaint: Fall Injury Stated Complaint: FALL INJURY Time Seen by Provider: 08/09/18 20:21 Source: Patient Mode of Arrival: Wheelchair Limitations: No limitations - History of Present Illness Initial Comments: 73 yo female presents to ED for evaluation following a fall x 2 today, reports a history of frequent falls at home. Patient's daughter reports that she was pushing her in a wheeled walker when the wheel hit a curb resulting in fall forwards. Patient denies anticoagulation medication use other than ASA at her baseline. Patient denies LOC, but reports injury to the posterior scalp and ribs bilaterally. Patient denies fevers, chills, or recent illness. MD Complaint: Fall Onset/Timin -: Minutes(s) Fall From: Wheelchair When Fall Occurred: 1-3 hours [employer] Fall Witnessed: Yes, by family Place Fall Occurred: Home Loss of Consciousness: None Prolonged Down Time?: No Symptoms Prior to Fall: None Location: Head Severity: Moderate Quality: Aching Associated Symptoms: Chest pain (Bilateral rib pain) - Víctor Coma Scale Eye Response: (4) Open spontaneously Motor Response: (6) Obeys commands Verbal Response: (5) Oriented [place] Total: 15 - Related Data Home Medications Medication Instructions Recorded Confirmed Last Taken Eszopiclone [Lunesta] 2 mg PO DAILY 08/09/18 08/09/18 Unknown Gluc Narvaez/Chondro Narvaez A/Vit C/Mn 1 each PO BID 08/09/18 08/09/18 Unknown [Glucosamine-Chondroitin Cap] Hydrocortisone [Proctozone-Hc] 1 apply TOP TID PRN 08/09/18 08/09/18 Unknown Multivitamin [Multi-Vitamin Daily] 1 each PO DAILY 08/09/18 08/09/18 Unknown Previous Rx's Medication Instructions Recorded Alprazolam [Xanax] 0.25 mg PO Q8HR PRN 3 Days #6 07/30/18 tablet Allergies Allergy/AdvReac Type Severity Reaction Status Date / Time latex [LATEX] Allergy Intermediate HIVES Verified 07/30/18 12:33 Sulfa (Sulfonamide Allergy Intermediate HIVES Verified 07/30/18 12:33 Antibiotics) [SULFA (SULFONAMIDE ANTIBIOTICS)] tioconazole AdvReac pain Verified 07/30/18 12:33 [From Monistat 1 (tioconazole)] Review of Systems Constitutional: Denies: Chills, Fever, Malaise, Night sweats Eyes: Denies: Eye discharge, Eye pain ENT: Denies: Congestion, Ear pain, Epistaxis Respiratory: Denies: Cough, Dyspnea Cardiovascular: Reports: Chest pain (Chest wall pain). Denies: Dyspnea on exertion, Palpitations, Syncope Endocrine: Denies: Fatigue, Heat or cold intolerance Gastrointestinal: Denies: Abdominal pain, Nausea, Vomiting Genitourinary: Denies: Incontinence, Retention Musculoskeletal: Reports: Arthralgia (left shoulder pain). Denies: Back pain, Gout, Joint swelling Skin: Denies: Bruising, Change in color Neurological: Reports: Headache. Denies: Confusion, Seizure Psychiatric: Denies: Anxiety Hematological/Lymphatic: Denies: Anemia, Blood Clots Past Medical History - SOCIAL HISTORY Smoking Status: Never smoker Drug Use: None - RESPIRATORY Hx Respiratory Disorders: Yes Hx Sleep Apnea: Yes (needs testing) Hx of CPAP: No Comment:: has sinus problems-common sinus infections-clear sinus drainage - CARDIOVASCULAR Hx Cardio Disorders: Yes Hx Edema: Yes Hx Hypertension: Yes Comment:: heart murmur - NEURO Hx Neuro Disorders: Yes Hx Brain Tumor: Yes (20 yrs ago "pinpoint"-many CAT scans-no problems) Hx Dementia: Yes (on meds) Hx Dizziness: Yes ("comes & goes"/thyroid related) Hx Headaches: Yes (sinus related) Hx Neuropathy: Yes (hands&feet) Hx Parkinson's Disease: Yes (trembling of hands) Comment:: 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 - GI Hx GI Disorders: Yes Hx Abdominal Pain: Yes (diverticulosis) Hx Diverticulitis: Yes Hx Reflux: Yes Hx Hiatal Hernia: Yes Hx Irritable Bowel: Yes Hx Obstructive Bowel: Yes Hx Wt Loss/Wt Gain: Yes - Hx Genitourinary Disorders: Yes Hx Bladder Problem: Yes (incontinence x 2 years) Hx Kidney Stones: Yes Comment:: hyst - ENDOCRINE Hx Endocrine Disorders: Yes Hx Thyroid Disease: Yes (hypo) - MUSCULOSKELETAL Hx Musculoskeletal Disorders: Yes Hx Arthritis: Yes (hands/knees/elbows/back & hips) Hx Back Injury: Yes (sees chiropractor) Hx Osteoporosis: Yes - PSYCH Hx Psych Problems: Yes Hx Anxiety: Yes Hx Depression: Yes Hx Suicide Attempt: Yes - HEMATOLOGY/ONCOLOGY Hx Hematology/Oncology Disorders: Yes 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:: melanoma-spot looks like it returned-right ankle Family Medical History Hx Anxiety: Mother Hx Depression: Father, Mother, Children, Brother/Sister Hx Diabetes: Brother/Sister *Diabetes Comment: 2 sisters & 1 brother Hx Heart Disease: Father, Brother/Sister *Heart Comment: brother 3 MIs Hx Resp Disorders: Brother/Sister *Resp Comment: 3 sisters use CPAP @ nite Physical Exam - General General Appearance: Alert, Oriented x3, Cooperative, Mild distress Limitations: No limitations - Head Head exam detail: General tenderness (Posterior scalp). negative: Abrasion, Contusion, Hematoma - Eye Eye exam: Normal appearance. negative: Conjunctival injection, Periorbital swelling, Periorbital tenderness, Scleral icterus - ENT Ear exam: negative: Auricular hematoma, Auricular trauma Nasal Exam: negative: Active bleeding, Discharge, Dried blood, Foreign body Mouth exam: negative: Drooling, Laceration, Muffled voice, Tongue elevation - Neck Neck exam: Normal inspection. negative: Meningismus, Tenderness - Respiratory Respiratory exam: Normal lung sounds bilaterally, Chest wall tenderness (Lower ribs bilaterally) - Cardiovascular Cardiovascular Exam: Regular rate, Normal rhythm, Normal heart sounds - GI/Abdominal GI/Abdominal exam: Soft. negative: Rebound, Rigid, Tenderness - Rectal Rectal exam: Deferred - exam: Deferred - Extremities Extremities exam: Normal inspection. negative: Pedal edema, Tenderness - Back Back exam: Denies: CVA tenderness (R), CVA tenderness (L) - Neurological Neurological exam: Alert, Oriented X3. negative: Motor sensory deficit - Psychiatric Psychiatric exam: Normal affect, Normal mood - Skin Skin exam: Normal color. negative: Abrasion Type of lesion: negative: abrasion Course - Reevaluation(s) Reevaluation #1: 08/09/18 21:14 Laboratory studies were reviewed and are grossly unremarkable for an acute process. Reevaluation #2: 08/09/18 21:27 CT Brain: No acute traumatic injury CT Cervical Spine: DJD, no acute traumatic injury identified CT Chest: No acute rib fractures identified Left ankle: No acute fracture identified Patient was updated on all results, reports improvement in her pain symptoms, and patient appears stable for discharge at this time. Medical Decision Making - Lab Data Result diagrams: 08/09/18 20:35 08/09/18 20:35 Disposition Disposition: Discharge Clinical Impression: Multiple contusions Fall Qualifiers: Encounter type: initial encounter Qualified Code(s): W19.XXXA - Unspecified fall, initial encounter Disposition: Home, Self-Care Condition: (2) Stable Instructions: Contusion in Adults (ED) Additional Instructions: Return to ED if your symptoms worsen or if you have any concerns. Motrin as directed. Follow-up with your family doctor in 3-5 days as directed. Forms: Patient Portal Access Time of Disposition: 21:49 Quality - Quality Measures Quality Measures: N/A - Blood Pressure Screening Does Patient Have Any of the Following: No Blood Pressure Classification: Pre-Hypertensive BP Reading Systolic Measurement: 159 Diastolic Measurement: 87 Screening for High Blood Pressure: < Pre-Hypertensive BP, F/U Documented > [ G8950] Pre-Hypertensive Follow-up Interventions: Referral to alternative/primary care provider.
[2018-08-09 20:49] LABS: BASO % 0.3 % (0-6); EOS % 1.6 % (0-6); GRAN % 55.7 % (47-80); HEMOGLOBIN 14.3 gm/dl (11.6-16.0); LYMPH % 34.8 % (16-45); MEAN CELL VOLUME 94.6 fl (81-97); MEAN CORPUSCULAR HEMOGLOBIN 30.8 pg (27-33); MEAN CORPUSCULAR HGB CONC 32.5 g/dl (32-36); MEAN PLATELET VOLUME 11.1 fl (7.4-10.4); MONO % 7.6 % (0-9); PLATELET COUNT 188 K/uL (130-400); RED BLOOD COUNT 4.65 M/uL (3.80-5.40); WHITE BLOOD COUNT W/O DIFF 10.8 K/uL (4.2-12.2)
[2018-08-09 20:50] LABS: URINE APPEARANCE CLEAR; URINE BILIRUBIN NEGATIVE (NEGATIVE); URINE BLOOD NEGATIVE (NEGATIVE); URINE COLOR YELLOW; URINE GLUCOSE (UA) NEGATIVE (NEGATIVE); URINE KETONE NEGATIVE (NEGATIVE); URINE LEUKOCYTE ESTERASE TRACE (NEGATIVE); URINE NITRITE NEGATIVE (NEGATIVE); URINE PROTEIN NEGATIVE (NEGATIVE); URINE UROBILINOGEN 0.2 E.U./dL (0.20 - 1.00)
[2018-08-09 20:58] LABS: BLOOD UREA NITROGEN 27 mg/dL (8-23); CREATININE 0.8 mg/dL (0.5-0.9); EST GLOMERULAR FILTRATION RATE > 60 mL/min
[2018-08-09 20:59] LABS: TOTAL PROTEIN 7.4 g/dL (6.6-8.7)
[2018-08-09 21:01] LABS: GLUCOSE,RANDOM 107 mg/dL (74-109); URINE EPITHELIAL CELLS 0 - 2 (FEW); URINE RBC NONE SEEN (NONE SEEN); URINE WBC 0 - 2 (0-2/hpf)
[2018-08-09 21:04] LABS: ALB/GLOB RATIO 1.6 (1.1-1.8); ALBUMIN 4.6 g/dL (4.0-5.0); ALKALINE PHOSPHATASE 121 U/L (45-87); ALT/SGPT 26 U/L (<33); AST/SGOT 29 U/L (10.0-35.0)
[2018-08-09] MEDS ORDERED: FENTANYL PF 100MCG/2ML VIAL IVP ONE (21:38)
[2018-08-09] MEDS ORDERED: ONDANSETRON HCL IV 4 MG/2 ML VIAL IVP ONE (21:39)
--- NOTE | 2018-08-13 08:34 | RADIOLOGY REPORT ---
EXAM: LEFT ANKLE, THREE VIEWS HISTORY: FALL, INJURY. TECHNIQUE: AP, oblique and lateral views of the left ankle were obtained. Comparison: None. Encounter: Initial. FINDINGS: The bones are demineralized. No acute bone or joint abnormality is identified. There is a calcaneal plantar spur. IMPRESSION: NO EVIDENCE FOR FRACTURE OR DISLOCATION. JOB NUMBER: [id number] MTDD
--- NOTE | 2018-08-13 08:47 | CT SCAN REPORT ---
EXAM: CT OF THE HEAD WITHOUT CONTRAST HISTORY: FALL, HIT BACK OF HEAD. TECHNIQUE: Standard CT imaging of the head without contrast was obtained. Comparison: None. FINDINGS: The ventricles, sulci and basal cisterns are normal. No intracranial hemorrhage or significant mass effect. No midline shift. Mild patchy hypodensity in the white matter is nonspecific, but likely chronic small vessel ischemic changes. Otherwise the garcia white matter differentiation is maintained. The visualized paranasal sinuses and mastoid air cells are clear. No calvarial fracture. IMPRESSION: NEGATIVE NONCONTRAST HEAD CT FOR ACUTE INTRACRANIAL ABNORMALITY. [facility]: [id number] [facility]
--- NOTE | 2018-08-13 08:51 | CT SCAN REPORT ---
EXAM: CT OF THE CERVICAL SPINE WITHOUT CONTRAST HISTORY: FALL. TECHNIQUE: Standard CT imaging of the cervical spine without contrast was obtained. Coronal and sagittal reformations are provided. Comparison: None. Encounter: Initial. FINDINGS: Alignment and vertebral body heights are maintained. Moderate disk space narrowing and degenerative end plate changes throughout the cervical spine , greatest at C6-C7. Multilevel uncovertebral and facet hypertrophy cause multilevel neural foraminal stenosis. Mild multilevel spinal canal stenosis. The prevertebral soft tissues are within normal limits. No acute fracture is identified. IMPRESSION: NO ACUTE FRACTURE OR MALALIGNMENT IN THE CERVICAL SPINE. [facility] NUMBER: [id number] [facility]
--- NOTE | 2018-08-13 09:01 | CT SCAN REPORT ---
EXAM: CT OF THE CHEST WITHOUT CONTRAST HISTORY: FALL, BILATERAL RIB PAIN. TECHNIQUE: Standard CT imaging of the chest without contrast was obtained. Coronal and sagittal reformations are provided. Comparison: None. FINDINGS: Atrophic thyroid gland. Mild coronary artery and aortic valve calcifications. No pericardial effusion. There are multiple calcified hilar and mediastinal lymph nodes likely from remote granulomatous disease. Numerous tiny gallstones. The spleen is enlarged measuring 14 cm in diameter. There is a 5.7 cm cyst partially visualized in the right kidney. There are surgical changes at the gastroesophageal junction along with a moderate sized hiatal hernia. There appears to have been focal resection of left eight rib posteriorly. No acute rib fracture is identified. There is no pleural effusion or pneumothorax. There is calcified granuloma at the right lung base. There is minimal atelectasis at both lung bases. IMPRESSION: NO EVIDENCE FOR ACUTE TRAUMA IN THE THORAX. JOB NUMBER: [id number] [facility]
== END 2018-08-09 22:33 | disposition home or self-care (01) ==
LOC: ER 20:19
DX: S20.211A Contusion of right front wall of thorax, initial encounter (principal); S00.03XA Contusion of scalp, initial encounter; S90.02XA Contusion of left ankle, initial encounter; I10 Essential (primary) hypertension; V00.811A Fall from moving wheelchair (powered), initial encounter; Y92.009 Unspecified place in unspecified non-institutional (private) residence as the place of occurrence of the external cause
CPT/HCPCS: 99284 ×2; 96374; 96375; 85025; 80053; 81001; 73610; 72125; 71250; 70450; J2405; J3010

== ENCOUNTER 2018-09-26 16:26 | Emergency (ER) | payer MEDICARE ==
--- NOTE | 2018-09-26 16:58 | Emergency Department Record ---
History of Present Illness - General Chief Complaint: Fall Injury Stated Complaint: FELL IN LOBBY Time Seen by Provider: 09/26/18 16:34 Source: Patient Mode of Arrival: Stretcher - History of Present Illness Initial Comments: The patient is here due to a fall in the lobby at the hospital here. She was in the front lobby and was bent over trying to get something out of her wallet when she lost her balance and fell sideways onto her L shoulder. She denies hitting her head or any LOC. Her only complaint is L arm and shoulder pain. The patient denies any SHARMA, neck pain, CP, SOB, or rib pain. She has a hx of frequent falls similar to this and has been to the ER multiple times for similar issues. The patient also does not take any blood thinners. MD Complaint: Fall Onset/Timin -: Minutes(s) Fall From: From height (distance) When Fall Occurred: Just prior to arrival Fall Witnessed: No Place Fall Occurred: Other Loss of Consciousness: None Prolonged Down Time?: No Symptoms Prior to Fall: None Severity: Severe Severity scale (1-10): 9 Quality: Aching, Sharp Context: History of frequent falls - [place] Coma Scale Eye Response: (4) Open spontaneously Motor Response: (6) Obeys commands Verbal Response: (5) Oriented Víctor Total: 15 - Related Data Previous Rx's Medication Instructions Recorded Alprazolam [Xanax] 0.25 mg PO Q8HR PRN 3 Days #6 07/30/18 tablet Allergies Allergy/AdvReac Type Severity Reaction Status Date / Time latex [LATEX] Allergy Intermediate HIVES Verified 09/26/18 16:48 Sulfa (Sulfonamide Allergy Intermediate HIVES Verified 09/26/18 16:48 Antibiotics) [SULFA (SULFONAMIDE ANTIBIOTICS)] tioconazole AdvReac pain Verified 09/26/18 16:48 [From Monistat 1 (tioconazole)] Travel Screening - Travel/Exposure Within Last 30 Days Have you traveled within the last 30 days?: No - Travel/Exposure Within Last Year Have you traveled outside the [place] in the last year?: No - Additonal Travel Details Have you been exposed to anyone with a communicable illness?: No - Travel Symptoms Symptom Screening: None Review of Systems Constitutional: Denies: Chills, Fever Eyes: Denies: Eye discharge ENT: Denies: Congestion Respiratory: Denies: Cough, Dyspnea Cardiovascular: Denies: Arrhythmia Endocrine: Denies: Fatigue Gastrointestinal: Denies: Abdominal pain Genitourinary: Denies: Dysuria Musculoskeletal: Denies: Arthralgia, Back pain Skin: Denies: Bruising Neurological: Reports: Abnormal gait (chronic.) Past Medical History - SOCIAL HISTORY Smoking Status: Never smoker Alcohol Use: None Drug Use: None - RESPIRATORY Hx Respiratory Disorders: Yes Hx Sleep Apnea: Yes (needs testing) Hx of CPAP: No Comment:: has sinus problems-common sinus infections-clear sinus drainage - CARDIOVASCULAR Hx Cardio Disorders: Yes Hx Edema: Yes Hx Hypertension: Yes Comment:: heart murmur - NEURO Hx Neuro Disorders: Yes Hx Brain Tumor: Yes (20 yrs ago "pinpoint"-many CAT scans-no problems) Hx Dementia: Yes (on meds) Hx Dizziness: Yes ("comes & goes"/thyroid related) Hx Headaches: Yes (sinus related) Hx Neuropathy: Yes (hands&feet) Hx Parkinson's Disease: Yes (trembling of hands) Comment:: 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 - GI Hx GI Disorders: Yes Hx Abdominal Pain: Yes (diverticulosis) Hx Diverticulitis: Yes Hx Reflux: Yes Hx Hiatal Hernia: Yes Hx Irritable Bowel: Yes Hx Obstructive Bowel: Yes Hx Wt Loss/Wt Gain: Yes - Hx Genitourinary Disorders: Yes Hx Bladder Problem: Yes (incontinence x 2 years) Hx Kidney Stones: Yes Comment:: hyst - ENDOCRINE Hx Endocrine Disorders: Yes Hx Thyroid Disease: Yes (hypo) - MUSCULOSKELETAL Hx Musculoskeletal Disorders: Yes Hx Arthritis: Yes (hands/knees/elbows/back & hips) Hx Back Injury: Yes (sees chiropractor) Hx Osteoporosis: Yes - PSYCH Hx Psych Problems: Yes Hx Anxiety: Yes Hx Depression: Yes Hx Suicide Attempt: Yes - HEMATOLOGY/ONCOLOGY Hx Hematology/Oncology Disorders: Yes 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:: melanoma-spot looks like it returned-right ankle Family Medical History Any Significant Family History?: Yes Hx Anxiety: Mother Hx Depression: Father, Mother, Children, Brother/Sister Hx Diabetes: Brother/Sister *Diabetes Comment: 2 sisters & 1 brother Hx Heart Disease: Father, Brother/Sister *Heart Comment: brother 3 MIs Hx Resp Disorders: Brother/Sister *Resp Comment: 3 sisters use CPAP @ nite Physical Exam - General General Appearance: Alert, Oriented x3, Cooperative, No acute distress - Head Head exam: Atraumatic, Normocephalic, Normal inspection (There are no signs of any head injury.) - Eye Eye exam: Normal appearance, PERRL - Neck Neck exam: Normal inspection, Full ROM. negative: Tenderness - Respiratory Respiratory exam: Normal lung sounds bilaterally. negative: Chest wall tenderness, Decreased breath sounds, Respiratory distress - Cardiovascular Cardiovascular Exam: Regular rate, Normal rhythm, Normal heart sounds - GI/Abdominal GI/Abdominal exam: Soft, Normal bowel sounds. negative: Tenderness - Extremities Extremities exam: Normal inspection, Tenderness (There is L shoulder tenderness but no bruising or swelling is appreciated.) - Neurological Neurological exam: Alert. negative: Motor sensory deficit Course Vital Signs 09/26/18 16:35 Temperature 97.9 F Pulse Rate 71 Respiratory 20 Rate Blood Pressure 137/79 Pulse Ox 93 L - Reevaluation(s) Reevaluation #1: The patient is doing a lot better at this time. She is still having some L arm pain but there is no swelling or bruising appreciated. She has normal ROM of the L shoulder also now and is able to raise the L shoulder about her head. I did explain that the xray did not demonstrate any abnormality and she is to see her PCP next week for recheck if not better. 09/26/18 17:35 Medical Decision Making - Data Complexity MDM Data: X-Ray Ordered and/or Reviewed - Radiology Data Radiology results: Report reviewed (L humerus: Neg.) Disposition Disposition: Discharge Clinical Impression: Multiple contusions, Falls frequently Disposition: Home, Self-Care Condition: (2) Stable Instructions: Fall Prevention for Older Adults (ED), Contusion in Adults (ED) Additional Instructions: Please use Tylenol for pain and use ice to the L arm for 2 days. Please see your family doctor if not better tomorrow and return to the ER for any worsening symptoms. Forms: Patient Portal Access Time of Disposition: 17:37 Quality - Quality Measures Quality Measures: N/A - Blood Pressure Screening View Details: Yes Does Patient Have Any of the Following: No Blood Pressure Classification: Pre-Hypertensive BP Reading Systolic Measurement: 137 Diastolic Measurement: 79 Screening for High Blood Pressure: < Pre-Hypertensive BP, F/U Documented > [ G8950] Pre-Hypertensive Follow-up Interventions: Referral to alternative/primary care provider.
[2018-09-26] MEDS ORDERED: ACETAMINOPHEN 325 MG TAB PO ONE (17:13)
--- NOTE | 2018-09-26 17:45 | Emergency Department Record ---
History of Present Illness - General Chief Complaint: Fall Injury Stated Complaint: FELL IN LOBBY Time Seen by Provider: 09/26/18 16:34 Source: Patient Mode of Arrival: Stretcher - History of Present Illness Onset/Timin -: Minutes(s) Fall From: From height (distance) When Fall Occurred: Just prior to arrival Fall Witnessed: No Place Fall Occurred: Other Loss of Consciousness: None Prolonged Down Time?: No Symptoms Prior to Fall: None Severity: Severe Severity scale (1-10): 9 Quality: Aching, Sharp Context: History of frequent falls - Ví[place] Coma Scale Eye Response: (4) Open spontaneously Motor Response: (6) Obeys commands Verbal Response: (5) Oriented [place] Total: 15 - Related Data Previous Rx's Medication Instructions Recorded Alprazolam [Xanax] 0.25 mg PO Q8HR PRN 3 Days #6 07/30/18 tablet Allergies Allergy/AdvReac Type Severity Reaction Status Date / Time latex [LATEX] Allergy Intermediate HIVES Verified 09/26/18 16:48 Sulfa (Sulfonamide Allergy Intermediate HIVES Verified 09/26/18 16:48 Antibiotics) [SULFA (SULFONAMIDE ANTIBIOTICS)] tioconazole AdvReac pain Verified 09/26/18 16:48 [From Monistat 1 (tioconazole)] Travel Screening - Travel/Exposure Within Last 30 Days Have you traveled within the last 30 days?: No - Travel/Exposure Within Last Year Have you traveled outside the [place] in the last year?: No - Additonal Travel Details Have you been exposed to anyone with a communicable illness?: No - Travel Symptoms Symptom Screening: None Review of Systems Constitutional: Denies: Chills, Fever Eyes: Denies: Eye discharge ENT: Denies: Congestion Respiratory: Denies: Cough, Dyspnea Cardiovascular: Denies: Arrhythmia Endocrine: Denies: Fatigue Gastrointestinal: Denies: Abdominal pain Genitourinary: Denies: Dysuria Musculoskeletal: Denies: Arthralgia, Back pain Skin: Denies: Bruising Neurological: Reports: Abnormal gait (chronic.) Past Medical History - SOCIAL HISTORY Smoking Status: Never smoker Alcohol Use: None Drug Use: None - RESPIRATORY Hx Respiratory Disorders: Yes Hx Sleep Apnea: Yes (needs testing) Hx of CPAP: No Comment:: has sinus problems-common sinus infections-clear sinus drainage - CARDIOVASCULAR Hx Cardio Disorders: Yes Hx Edema: Yes Hx Hypertension: Yes Comment:: heart murmur - NEURO Hx Neuro Disorders: Yes Hx Brain Tumor: Yes (20 yrs ago "pinpoint"-many CAT scans-no problems) Hx Dementia: Yes (on meds) Hx Dizziness: Yes ("comes & goes"/thyroid related) Hx Headaches: Yes (sinus related) Hx Neuropathy: Yes (hands&feet) Hx Parkinson's Disease: Yes (trembling of hands) Comment:: 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 - GI Hx GI Disorders: Yes Hx Abdominal Pain: Yes (diverticulosis) Hx Diverticulitis: Yes Hx Reflux: Yes Hx Hiatal Hernia: Yes Hx Irritable Bowel: Yes Hx Obstructive Bowel: Yes Hx Wt Loss/Wt Gain: Yes - Hx Genitourinary Disorders: Yes Hx Bladder Problem: Yes (incontinence x 2 years) Hx Kidney Stones: Yes Comment:: hyst - ENDOCRINE Hx Endocrine Disorders: Yes Hx Thyroid Disease: Yes (hypo) - MUSCULOSKELETAL Hx Musculoskeletal Disorders: Yes Hx Arthritis: Yes (hands/knees/elbows/back & hips) Hx Back Injury: Yes (sees chiropractor) Hx Osteoporosis: Yes - PSYCH Hx Psych Problems: Yes Hx Anxiety: Yes Hx Depression: Yes Hx Suicide Attempt: Yes - HEMATOLOGY/ONCOLOGY Hx Hematology/Oncology Disorders: Yes 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:: melanoma-spot looks like it returned-right ankle Family Medical History Any Significant Family History?: Yes Hx Anxiety: Mother Hx Depression: Father, Mother, Children, Brother/Sister Hx Diabetes: Brother/Sister *Diabetes Comment: 2 sisters & 1 brother Hx Heart Disease: Father, Brother/Sister *Heart Comment: brother 3 MIs Hx Resp Disorders: Brother/Sister *Resp Comment: 3 sisters use CPAP @ nite Physical Exam - Extremities Extremities exam: Tenderness (The main tenderness seems to be over the mid L humerus. There is no swelling or bruising appreciated there.), Other (The L arm is NVI.) Course Vital Signs 09/26/18 16:35 Temperature 97.9 F Pulse Rate 71 Respiratory 20 Rate Blood Pressure 137/79 Pulse Ox 93 L Disposition Clinical Impression: Multiple contusions, Falls frequently Disposition: Home, Self-Care Condition: (2) Stable Instructions: Fall Prevention for Older Adults (ED), Contusion in Adults (ED) Additional Instructions: Please use Tylenol for pain and use ice to the L arm for 2 days. Please see your family doctor if not better tomorrow and return to the ER for any worsening symptoms. Forms: Patient Portal Access Quality - Quality Measures Quality Measures: N/A - Blood Pressure Screening View Details: Yes Does Patient Have Any of the Following: No Blood Pressure Classification: Pre-Hypertensive BP Reading Systolic Measurement: 137 Diastolic Measurement: 79 Screening for High Blood Pressure: < Pre-Hypertensive BP, F/U Documented > [ G8950] Pre-Hypertensive Follow-up Interventions: Referral to alternative/primary care provider.
--- NOTE | 2018-09-27 14:42 | RADIOLOGY REPORT ---
EXAM: LEFT HUMERUS, TWO VIEWS HISTORY: PATIENT HAS A HISTORY OF FALL. TECHNIQUE: Two views of the left humerus are provided with comparison x-ray of the left shoulder dated 01/25/15. FINDINGS: There is no radiographic evidence of a fracture or dislocation of the left humerus. No significant soft tissue abnormalities are visualized. The visualized left shoulder is unremarkable. Osteoarthritic changes are identified at the left elbow. IMPRESSION: NO RADIOGRAPHIC EVIDENCE OF AN ACUTE PROCESS INVOLVING THE LEFT HUMERUS. JOB NUMBER: [id number] MTDD
== END 2018-09-26 17:47 | disposition home or self-care (01) ==
LOC: ER 16:26
DX: S40.022A Contusion of left upper arm, initial encounter (principal); S40.012A Contusion of left shoulder, initial encounter; W01.10XA Fall on same level from slipping, tripping and stumbling with subsequent striking against unspecified object, initial encounter; Y92.238 Other place in hospital as the place of occurrence of the external cause; I10 Essential (primary) hypertension; Z91.81 History of falling
CPT/HCPCS: 99283

== ENCOUNTER 2018-12-03 22:38 | Observation (INO) | payer MEDICARE ==
[2018-12-03] MEDS ORDERED: ONDANSETRON HCL IV 4 MG/2 ML VIAL IVP ONE (22:54)
[2018-12-03] MEDS ORDERED: FENTANYL PF 100MCG/2ML VIAL IVP ONE (22:54)
[2018-12-03] MEDS ORDERED: 0.9 % SODIUM CHLORIDE 1000ML 500 ML IV SCH (23:00)
--- NOTE | 2018-12-03 23:03 | Emergency Department Record ---
History of Present Illness - General Chief Complaint: Fall Injury Stated Complaint: FALL Time Seen by Provider: 12/03/18 22:47 Source: Patient, EMS Mode of Arrival: EMS Limitations: No limitations - History of Present Illness Initial Comments: 73 yo female presents to ED for evaluation following a fall while using her walker at home this evening. Patient reports that her fall was the result of a [id number], reports pain to the right shoulder, right posterior ribs, and right hip/femur following her fall. Patient is unsure of an injury to the head or neck, arrived in cervical immobilization. Patient denies the use of anticoagulation medications at her baseline. MD Complaint: Fall Onset/Timin -: Minutes(s) Fall From: Standing When Fall Occurred: Unsure Fall Witnessed: No Place Fall Occurred: Home Loss of Consciousness: None Prolonged Down Time?: No Symptoms Prior to Fall: None Location - Extremities: Right: Shoulder Severity: Mild Severity scale (1-10): 8 Quality: Aching Associated Symptoms: Denies - [place] Coma Scale Eye Response: (4) Open spontaneously Motor Response: (6) Obeys commands Verbal Response: (5) Oriented [place] Total: 15 - Related Data Previous Rx's Medication Instructions Recorded Alprazolam [Xanax] 0.25 mg PO Q8HR PRN 3 Days #6 07/30/18 tablet Allergies Allergy/AdvReac Type Severity Reaction Status Date / Time latex [LATEX] Allergy Intermediate HIVES Verified 09/26/18 16:48 Sulfa (Sulfonamide Allergy Intermediate HIVES Verified 09/26/18 16:48 Antibiotics) [SULFA (SULFONAMIDE ANTIBIOTICS)] tioconazole AdvReac pain Verified 09/26/18 16:48 [From Monistat 1 (tioconazole)] Travel Screening - Travel/Exposure Within Last 30 Days Have you traveled within the last 30 days?: No Review of Systems Constitutional: Denies: Chills, Fever, Malaise, Night sweats Eyes: Denies: Eye discharge, Eye pain ENT: Denies: Congestion, Ear pain, Epistaxis Respiratory: Denies: Cough, Dyspnea Cardiovascular: Reports: Other (Posterior rib pain). Denies: Chest pain, Dyspnea on exertion Endocrine: Denies: Fatigue, Heat or cold intolerance Gastrointestinal: Denies: Abdominal pain, Nausea, Vomiting Genitourinary: Denies: Incontinence, Retention Musculoskeletal: Reports: Arthralgia. Denies: Back pain, Gout, Joint swelling Skin: Denies: Bruising, Change in color Neurological: Denies: Abnormal gait, Confusion, Headache, Seizure Psychiatric: Denies: Anxiety Hematological/Lymphatic: Denies: Anemia, Blood Clots Past Medical History - SOCIAL HISTORY Smoking Status: Never smoker Alcohol Use: None Drug Use: None - RESPIRATORY Hx Respiratory Disorders: Yes Hx Sleep Apnea: Yes (needs testing) Hx of CPAP: No Comment:: has sinus problems-common sinus infections-clear sinus drainage - CARDIOVASCULAR Hx Cardio Disorders: Yes Hx Edema: Yes Hx Hypertension: Yes Comment:: heart murmur - NEURO Hx Neuro Disorders: Yes Hx Brain Tumor: Yes (20 yrs ago "pinpoint"-many CAT scans-no problems) Hx Dementia: Yes (on meds) Hx Dizziness: Yes ("comes & goes"/thyroid related) Hx Headaches: Yes (sinus related) Hx Neuropathy: Yes (hands&feet) Hx Parkinson's Disease: Yes (trembling of hands) Comment:: 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 - GI Hx GI Disorders: Yes Hx Abdominal Pain: Yes (diverticulosis) Hx Diverticulitis: Yes Hx Reflux: Yes Hx Hiatal Hernia: Yes Hx Irritable Bowel: Yes Hx Obstructive Bowel: Yes Hx Wt Loss/Wt Gain: Yes - Hx Genitourinary Disorders: Yes Hx Bladder Problem: Yes (incontinence x 2 years) Hx Kidney Stones: Yes Comment:: hyst - ENDOCRINE Hx Endocrine Disorders: Yes Hx Thyroid Disease: Yes (hypo) - MUSCULOSKELETAL Hx Musculoskeletal Disorders: Yes Hx Arthritis: Yes (hands/knees/elbows/back & hips) Hx Back Injury: Yes (sees chiropractor) Hx Osteoporosis: Yes - PSYCH Hx Psych Problems: Yes Hx Anxiety: Yes Hx Depression: Yes Hx Suicide Attempt: Yes - HEMATOLOGY/ONCOLOGY Hx Hematology/Oncology Disorders: Yes 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:: melanoma-spot looks like it returned-right ankle Family Medical History Any Significant Family History?: Yes Hx Anxiety: Mother Hx Depression: Father, Mother, Children, Brother/Sister Hx Diabetes: Brother/Sister *Diabetes Comment: 2 sisters & 1 brother Hx Heart Disease: Father, Brother/Sister *Heart Comment: brother 3 MIs Hx Resp Disorders: Brother/Sister *Resp Comment: 3 sisters use CPAP @ nite Physical Exam - General General Appearance: Alert, Oriented x3, Cooperative, Moderate distress Limitations: No limitations - Head Head exam: Atraumatic, Normocephalic, Normal inspection Head exam detail: negative: Abrasion, Contusion, Wood's sign, General tenderness, Hematoma, Laceration - Eye Eye exam: Normal appearance. negative: Conjunctival injection, Periorbital swelling, Periorbital tenderness, Scleral icterus - ENT Ear exam: negative: Auricular hematoma, Auricular trauma Nasal Exam: negative: Active bleeding, Discharge, Dried blood, Foreign body Mouth exam: negative: Drooling, Laceration, Muffled voice, Tongue elevation - Neck Neck exam: Other (Cervical spine is immobilized in cervical collar on e xamination.) - Respiratory Respiratory exam: Normal lung sounds bilaterally, Chest wall tenderness (Right posterior-lateral ribs). negative: Rales, Respiratory distress, Rhonchi, Stridor - Cardiovascular Cardiovascular Exam: Regular rate, Normal rhythm, Normal heart sounds - GI/Abdominal GI/Abdominal exam: Soft. negative: Rebound, Rigid, Tenderness - Rectal Rectal exam: Deferred - exam: Deferred - Extremities Extremities exam: Tenderness, Other (TTP over the right hip, femur, and knee. No obvious deformity is present on examination, strong distal dorsalis pedis pulse is present on examination.). negative: Calf tenderness, Pedal edema - Back Back exam: Denies: CVA tenderness (R), CVA tenderness (L) - Neurological Neurological exam: Alert, Oriented X3 - Psychiatric Psychiatric exam: Normal affect, Normal mood - Skin Skin exam: Normal color. negative: Abrasion Type of lesion: negative: abrasion Course Vital Signs 12/03/18 22:44 Temperature 97.7 F Pulse Rate 66 Respiratory 16 Rate Blood Pressure 185/91 Pulse Ox 94 L - Reevaluation(s) Reevaluation #1: 12/03/18 23:[address] imaging, resting more comfortably following analgesia. Awaiting interpretations of all imaging studies at this time. Reevaluation #2: 12/04/18 00:00 Laboratory studies were reviewed and appear grossly unremarkable for an acute process. Right Shoulder: ED Interpretation: No acute fracture or dislocation. Right Knee: ED Interpretation: DJD, no acute fracture identified Right Femur: ED Interpretation: No acute fracture identified Reevaluation #3: 12/04/18 00:35 12/04/18 00:29 CT Brain: No acute process CT Cervical Spine: Degenerative changes, nothing acute CT Chest: Right 6th rib fracture No pneumothorax, no hemothorax CT Abdomen/Pelvis: No acute traumatic injury identified Chronic changes are present Patient and her daughter were updated on all results, daughter reports that she is unable to take the patient home safely and get her upstairs due to recent injury. Will place in observation with consult for PT/OT to ensure the patient is stable for discharge home. 12/04/18 00:55 Reevaluation #4: 12/04/18 02:28 Right foot: Distal 5th metatarsal fracture, comminuted, angulated approximately 30 degrees Left foot: Proximal 5th metatarsal fracture Will place patient in bilateral [email or web address] walking boots, consult Dr Corrales (cared from patient's previous toe fracture in July of this year) in the AM for further evaluation. Reevaluation #5: 12/04/18 06:50 Case was discussed with Ann Bergeron NP, will accept admission at this time. Medical Decision Making - Lab Data Result diagrams: 12/03/18 23:04 12/03/18 23:04 Disposition Disposition: Admit Clinical Impression: Generalized weakness Fall from standing Qualifiers: Encounter type: initial encounter Qualified Code(s): W19.XXXA - Unspecified fall, initial encounter Right rib fracture Qualifiers: Encounter type: initial encounter Rib fracture type: single rib Fracture type: closed Qualified Code(s): S22.31XA - Fracture of one rib, right side, initial encounter for closed fracture Metatarsal fracture Qualifiers: Encounter type: initial encounter Metatarsal bone: fifth Fracture type: closed Fracture alignment: displaced Laterality: right Qualified Code(s): S92.351A - Displaced fracture of fifth metatarsal bone, right foot, initial encounter for closed fracture Disposition: Still a Patient at [facility] Decision to Admit: Admit from ER Decision to Admit Date: 12/04/18 Decision to Admit Time: 00:56 Condition: (2) Stable Time of Disposition: 00:56 Quality - Quality Measures Quality Measures: N/A - Blood Pressure Screening Does Patient Have Any of the Following: Active Dx of HTN Blood Pressure Classification: Hypertensive Reading Systolic Measurement: 185 Diastolic Measurement: 91 Screening for High Blood Pressure: Patient Exclusion, Hx of HTN [[id number]] First Hypertensive Follow-up Interventions: Referral to alternative/primary care provider.
[2018-12-03 23:10] LABS: HEMATOCRIT 39.5 % (35.0-47.0); HEMOGLOBIN 12.6 gm/dl (11.6-16.0); MEAN CELL VOLUME 97.3 fl (81-97); MEAN CORPUSCULAR HGB CONC 31.9 g/dl (32-36); MEAN PLATELET VOLUME 10.9 fl (7.4-10.4); PLATELET COUNT 174 K/uL (130-400); RED BLOOD COUNT 4.06 M/uL (3.80-5.40); RED CELL DISTRIBUTION WIDTH 16.2 % (11.5-14.5); WHITE BLOOD COUNT W/O DIFF 10.5 K/uL (4.2-12.2)
[2018-12-03 23:19] LABS: BLOOD UREA NITROGEN 30 mg/dL (8-23); CREATININE 0.9 mg/dL (0.5-0.9); EST GLOMERULAR FILTRATION RATE > 60 mL/min
[2018-12-03 23:20] LABS: TOTAL PROTEIN 6.9 g/dL (6.6-8.7)
[2018-12-03 23:22] LABS: GLUCOSE,RANDOM 101 mg/dL (74-109)
[2018-12-03 23:24] LABS: ALB/GLOB RATIO 1.7 (1.1-1.8); ALBUMIN 4.3 g/dL (4.0-5.0); ALKALINE PHOSPHATASE 114 U/L (35-104); ALT/SGPT 18 U/L (<33); AST/SGOT 22 U/L (10.0-35.0)
[2018-12-03 23:34] LABS: ABSOLUTE NEUTROPHIL COUNT 6.72; ANISOCYTOSIS 1+; PLATELET ESTIMATE NORMAL (NORMAL)
[2018-12-03 23:35] LABS: TOXIC GRANULATION 1+
[2018-12-04] MEDS ORDERED: MORPHINE SULFATE 10MG/1ML **1ML VIAL IVP PRN (02:08)
[2018-12-04] MEDS ORDERED: ALPRAZOLAM 0.25 MG TABLET PO PRN (02:08)
[2018-12-04] MEDS ORDERED: PRAMIPEXOLE DI-HCL 0.25 MG TABLET PO SCH (03:30)
[2018-12-04] MEDS ORDERED: SERTRALINE HCL 50 MG TABLET PO SCH (03:30)
[2018-12-04] MEDS ORDERED: GABAPENTIN 300 MG CAPSULE PO SCH (03:30)
[2018-12-04] MEDS: LEVOTHYROXINE SODIUM 175 MCG TABLET PO SCH (07:00)
[2018-12-04] MEDS: PANTOPRAZOLE SODIUM 40 MG TABLET PO SCH (07:00)
--- NOTE | 2018-12-04 07:45 | CT SCAN REPORT ---
EXAM: CT OF THE BRAIN WITHOUT CONTRAST HISTORY: FALL. DIZZINESS. TECHNIQUE: Routine noncontrast CT of the brain was obtained. Comparison: CT of the brain without contrast dated 08/09/18. FINDINGS: Evaluation of the posterior fossa is limited by artifact. The ventricles and subarachnoid spaces remain normal in size for age. Mild age related atrophy is again suggested. Small areas of lucency are again noted in the periventricular white matter of each cerebral hemisphere, unchanged, consistent with chronic microvascular ischemia. No other area of abnormally increased or decreased attenuation is noted throughout the brain substance. No abnormal extraaxial fluid collection is seen. No skull fracture is identified. There is mucosal thickening/fluid in the left maxillary sinus. The visualized paranasal sinuses are otherwise unremarkable. The visualized portions of the orbits are unremarkable. IMPRESSION: 1. NO CT EVIDENCE OF AN ACUTE INTRACRANIAL ABNORMALITY NOR SKULL FRACTURE. 2. MINOR AGE RELATED ATROPHY REDEMONSTRATED. MINOR WHITE MATTER CHANGES IN EACH CEREBRAL HEMISPHERE CONSISTENT WITH CHRONIC MICROVASCULAR ISCHEMIA, STABLE. 3. MILD MUCOSAL THICKENING WITHIN THE LEFT MAXILLARY SINUS. [facility]: [id number] [facility]
--- NOTE | 2018-12-04 08:04 | CT SCAN REPORT ---
EXAM: CT OF THE CERVICAL SPINE WITHOUT CONTRAST HISTORY: NECK PAIN POST FALL. TECHNIQUE: Thin collimation helical CT examination of the cervical spine was performed without intravenous contrast administration. Coronal and sagittal reformatted images are generated and reviewed. Comparison: CT cervical spine without contrast dated 08/09/18. FINDINGS: There is minor anterolisthesis of C3 on C4 measuring 1.6 mm. This is slightly more pronounced in the interval and may just relate to patient positioning. Minimal anterolisthesis of C5 on C6 is also identified, not significantly changed. The cervical vertebral bodies are otherwise normal in alignment and height. No acute fracture, destructive bone lesion or prevertebral soft tissue swelling. Multilevel degenerative disk/degenerative end plate changes are redemonstrated most pronounced at the C4-C5 and C6-C7 levels where they are moderate in degree. Mild multilevel central canal stenosis is suspected primarily at the C3-C4, C4- C5, and C6-C7 levels. Multilevel bilateral facet arthropathy is noted most pronounced at the mid and upper levels where the changes are moderate to severe. The changes at the C3-C4 level on the left are advanced with associated erosive change, stable. Multilevel bilateral neural foraminal narrowing is present due to uncovertebral joint and facet joint spurring. This is of varying degrees. No new cervical mass nor adenopathy. There is mild mucosal thickening within the left maxillary sinus. Mild biapical lung scarring is suspected. IMPRESSION: 1. DIFFUSE OSTEOPENIA LIMITS EVALUATION. 2. MULTILEVEL DEGENERATIVE CHANGES AGAIN IDENTIFIED, DETAILED ABOVE. MINOR ANTEROLISTHESIS OF C3 ON C4 APPEARS SLIGHTLY MORE PRONOUNCED IN THE INTERVAL THOUGH THIS MAY JUST RELATE TO DIFFERENCES IN PATIENT POSITIONING AND IS LIKELY THE RESULT OF DEGENERATIVE DISK AND FACET DEGENERATIVE CHANGE. 3. NO NEW FRACTURE, SUSPICIOUS SUBLUXATION, OR PREVERTEBRAL SOFT TISSUE SWELLING. 4. NOT MENTIONED ABOVE IS MILD WEDGING OF THE T3 VERTEBRAL BODY WITH SUPERIOR END PLATE SCLEROSIS. THIS HAS A CHRONIC APPEARANCE. [facility]: [id number] [facility]
[2018-12-04] MEDS: BUMETANIDE 1 MG TABLET PO SCH ×2 (08:16→15:56)
--- NOTE | 2018-12-04 08:29 | CT SCAN REPORT ---
EXAM: CT OF THE CHEST WITHOUT CONTRAST HISTORY: PAIN POST FALL. RIGHT UPPER QUADRANT ABDOMINAL PAIN. RIGHT SIDED CHEST PAIN. TECHNIQUE: Routine noncontrast CT of the chest was obtained. Comparison: CT of the chest without contrast dated 08/09/18. FINDINGS: The heart remains at the upper limits of normal in size. There is mild atherosclerotic calcification of the left coronary artery and its branches. The thoracic aorta is atherosclerotic, but without aneurysmal dilatation. No new noncalcified mediastinal or hilar mass/lymphadenopathy is seen. Calcified lymph nodes are again noted within the subcarinal portion of the mediastinum as well as right hilum consistent with healed granulomatous disease. The thyroid gland is atrophic. Patchy opacities are noted in the dependent lungs most pronounced in the bases likely relating to atelectasis. Infiltrate less likely. Mild linear scarring versus atelectasis also demonstrated within the lung bases. Mild underlying chronic interstitial change within the lung bases is possible. A calcified granuloma is again noted within the posterolateral right lung base. There is chronic deformity of the proximal left eighth rib. There is redemonstration of a fracture deformity of the proximal left ninth rib. There is a healing fracture of the lateral right sixth rib. This is new since the prior examination. No other osseous fracture identified. The adrenal glands are not enlarged. Post surgical changes are again noted in the region of the gastroesophageal junction. Hiatal hernia is again suspected. No pleural effusion or pneumothorax. IMPRESSION: 1. HEALING LATERAL RIGHT SIXTH RIB FRACTURE, NEW SINCE THE PRIOR CT CHEST EXAMINATION. 2. CHRONIC DEFORMITIES OF THE LEFT EIGHTH AND NINTH RIBS ARE STABLE. 3. HEALED GRANULOMATOUS DISEASE. 4. PATCHY OPACITIES IN THE DEPENDENT LUNGS LIKELY RELATING TO ATELECTASIS. INFILTRATE LESS LIKELY. LINEAR SCARRING VERSUS ATELECTASIS ALSO NOTED WITHIN THE LUNG BASES WITH A COMPONENT OF CHRONIC INTERSTITIAL CHANGE AGAIN POSSIBLE. 5. MILD CORONARY ARTERY CALCIFICATION. JOB NUMBER: [id number] [facility]
--- NOTE | 2018-12-04 08:44 | RADIOLOGY REPORT ---
EXAM: RIGHT FEMUR HISTORY: RIGHT HIP AND KNEE PAIN POST FALL. TECHNIQUE: AP and lateral views of the right femur are obtained. Comparison: Same day radiographic examination of the right knee. Encounter: Initial. FINDINGS: Mild osteopenia is present. No convincing acute fracture, dislocation or destructive bone lesion is seen. There are mild degenerative changes of the right hip and mild tricompartmental degenerative changes of the right knee. No suspicious focal soft tissue abnormality. IMPRESSION: 1. OSTEOPENIA. 2. NO DEFINITE ACUTE FRACTURE NOR DISLOCATION. 3. MILD DEGENERATIVE CHANGES. JOB NUMBER: [id number] [facility]
--- NOTE | 2018-12-04 08:47 | RADIOLOGY REPORT ---
EXAM: RIGHT KNEE, FOUR VIEWS HISTORY: PAIN POST FALL. TECHNIQUE: Four views of the right knee were obtained. Comparison: Same day two views of the right femur. Two views of the right knee dated 07/02/18. Encounter: Initial. FINDINGS: Diffuse osteopenia mildly limits evaluation. No definite acute fracture, dislocation, or destructive bone lesion is seen. Mild tricompartmental osteoarthritis. No joint effusion. No focal soft tissue abnormality. IMPRESSION: 1. OSTEOPENIA. 2. NO ACUTE OSSEOUS ABNORMALITY. MILD TRICOMPARTMENTAL OSTEOARTHRITIS. JOB NUMBER: [id number] [facility]
[2018-12-04] MEDS ORDERED: ZOLPIDEM TARTRATE 5 MG TABLET PO PRN (08:52)
--- NOTE | 2018-12-04 09:16 | CT SCAN REPORT ---
EXAM: CT OF THE ABDOMEN AND PELVIS WITHOUT CONTRAST HISTORY: RIGHT UPPER ABDOMEN PAIN POST FALL. RIGHT HIP PAIN. TECHNIQUE: Helical CT examination of the abdomen and pelvis was performed without oral or intravenous contrast administration. Lack of oral and IV contrast utilization limits evaluation of the bowel and solid viscera respectively. Comparison: Abdominal ultrasound dated 01/31/18. CT of the chest without contrast dated 08/09/18. FINDINGS: Patchy opacities are noted in the dependent lung bases consistent with atelectasis. Infiltrate is less likely. Additional minor linear opacities are noted in each lung base consistent with scarring or atelectasis. Mild underlying chronic interstitial change cannot be excluded. A calcified granuloma is again noted in the posterolateral right lung base. Chronic deformities of the left eighth and ninth ribs redemonstrated. A healing nondisplaced fracture of the lateral right sixth rib is identified new since 08/09/18. No pleural or pericardial effusion. Post surgical changes are again noted at the gastroesophageal junction with small hiatal hernia again suspected. The liver, spleen, pancreas, and adrenal glands are normal in appearance. Multiple calcified stones are noted in the dependent gallbladder without gallbladder wall thickening or pericholecystic fluid. No gross biliary ductal dilatation is seen. There is a well circumscribed exophytic fluid density mass arising from the lateral upper pole of the right kidney measuring 5.6 x 5.6 cm consistent with a benign cyst. This is unchanged since the prior CT chest examination. There is a well circumscribed fluid density mass arising from the lower pole of the left kidney measuring 1.9 x 1.9 cm. This is also consistent with a benign cyst. This was not included on the prior CT examination. The kidneys are otherwise normal in appearance. No intraabdominal nor retroperitoneal lymphadenopathy. There is diffuse atherosclerosis without aneurysmal dilatation of the abdominal aorta nor iliac arteries. The uterus is surgically absent. No pelvic mass, lymphadenopathy, or free pelvic fluid. No intrinsic urinary bladder abnormality is seen. Fat density prominence is noted in each inguinal canal consistent with lipomas or small fat filled inguinal hernia sacs. No gross bowel dilatation nor bowel wall thickening. The appendix is visualized and normal in appearance. There is diverticulosis of the left colon, mild in degree without evidence of diverticulitis. There is a moderate amount of stool throughout the colon. No free intraperitoneal air. There is some transversely oriented calcific density involving the lower abdominal wall near the midline. This has a chronic benign appearance. There is a tiny fat filled umbilical hernia. No definite acute osseous fracture. Bilateral spondylolysis of L5 is present with Grade 1/2 anterolisthesis of L5 on S1. There is associated severe bilateral neural foraminal narrowing. Multilevel degenerative changes most pronounced at the lower lumbar levels. IMPRESSION: 1. NO CONVINCING CT EVIDENCE OF AN ACUTE VISCERAL INJURY. 2. POST SURGICAL CHANGES AGAIN NOTED AT THE GASTROESOPHAGEAL JUNCTION WITH PROBABLE SMALL HIATAL HERNIA PRESENT. 3. MIXED OPACITIES WITHIN THE LUNG BASES, DISCUSSED ABOVE. CALCIFIED GRANULOMA AGAIN NOTED IN THE RIGHT LUNG BASE. 4. OLD DEFORMITIES OF THE LEFT EIGHTH AND NINTH RIBS. HEALING NONDISPLACED FRACTURE OF THE LATERAL RIGHT SIXTH RIB NEW SINCE 08/09/18. 5. CHOLELITHIASIS. 6. BILATERAL RENAL CYSTS. 7. COLONIC DIVERTICULOSIS. MODERATE AMOUNT OF STOOL WITHIN THE COLON. 8. STATUS POST HYSTERECTOMY. 9. FAT DENSITY PROMINENCE IN EACH INGUINAL CANAL CONSISTENT WITH LIPOMAS OR SMALL FAT FILLED INGUINAL HERNIA. JOB NUMBER: [id number] [facility]
[2018-12-04] MEDS: ATORVASTATIN 20 MG TABLET PO SCH (09:18)
[2018-12-04] MEDS: GABAPENTIN 300 MG CAPSULE PO SCH ×4 (09:20→21:01)
[2018-12-04] MEDS: PRAMIPEXOLE DI-HCL 0.25 MG TABLET PO SCH ×3 (09:20→21:01)
[2018-12-04] MEDS: ASPIRIN 81 MG TABEC PO SCH (09:21)
[2018-12-04] MEDS: POTASSIUM CHLORIDE 10 MEQ TAB PO SCH (09:21)
[2018-12-04] MEDS: LORATADINE 10 MG TABLET PO SCH (09:21)
--- NOTE | 2018-12-04 09:21 | RADIOLOGY REPORT ---
EXAM: RIGHT SHOULDER, THREE VIEWS HISTORY: PAIN POST FALL. TECHNIQUE: Three views of the right shoulder were obtained. Comparison: Same day CT chest without contrast examination. Encounter: Initial. FINDINGS: Diffuse osteopenia mildly limits evaluation. No acute fracture nor dislocation. There are mild hypertrophic degenerative changes of the acromioclavicular and glenohumeral joints. Healed granulomatous disease is noted in the right hilar region. IMPRESSION: 1. OSTEOPENIA LIMITS EVALUATION. 2. NO ACUTE FRACTURE NOR DISLOCATION. 3. MILD DEGENERATIVE CHANGES. JOB NUMBER: [id number] [facility]
[2018-12-04] MEDS: COLESTIPOL HCL 2 GM PO SCH ×4 (09:22→21:01)
--- NOTE | 2018-12-04 09:42 | History & Physical ---
History of Present Illness - Date of Service Date of Service for History & Physical: 12/04/18 - History of Present Illness Admitting Diagnosis: Fall from standing. Right 6th rib fracture. Generalized weakness History of Present Illness: Bobbi Cabrales is a 73 y.o. F who presented to the ED after a fall while using her walker at home. Reported that her fall was d/t stumbling near her sewing table while using her walker. States that she has Bursitis in her left shoulder and right foot drop which she states thinks attributed to the stumble. In the ED, she reported pain in the Right shoulder, right posterior ribs, right hip/femur area. Underwent several imagining studies to r/o fractures. Was found to have a Right 6th rib fx, a 5th right distal metatarsal comminuted fracture, angulated approximately 30 degrees and a 5th left proximal metatarsal fx. Was placed in [employer]a walking boots in the ED admitted for observation for PT/OT consultation. PCP: Dr. 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 ED Course: Vitals: 97.7, 66, 185/91, 16, 94% on RA Labs unremarkable Right shoulder, right knee, right femur Xrays: No fx CT Brain: no acute process CT Cervical Spine: degen changes CT Chest: R 6th rib fx, no acute process CT Abd/Pelvis: Chronic changes, No acute traumatic injury Right/Left X-Ray: 5th metatarsal fx 12/04/18 0940 Vitals: 98.0, 56, 136/65, 16, 90% RA Resting in bed, alert and oriented x 3. Denies having pain stating "Whatever meds I have been given have worked well." Biggest concern is getting into her Neurologist more quickly for her CIDP treatment. Does have a hx of right metatarsal fx and saw Dr. Corrales in July 2018. Discussed case with Dr. Corrales who reviewed the left and right foot x-rays and recommended that she be WBAT, use [employer] Walking boots and to f/u outpatient. Then discussed with pt who is agreeable. PT/OT ordered to evaluate pt. Travel Screening - Travel/Exposure Within Last 30 Days Have you traveled within the last 30 days?: No - Travel/Exposure Within Last Year Have you traveled outside the [place] in the last year?: No - Additonal Travel Details Have you been exposed to anyone with a communicable illness?: No Review of Systems Constitutional: Denies: Chills, Fever, Malaise, Night sweats Eyes: Denies: Eye discharge, Eye pain ENT: Denies: Congestion, Ear pain, Epistaxis Respiratory: Denies: Cough, Dyspnea Cardiovascular: Reports: Other (Posterior rib pain). Denies: Chest pain, Dyspnea on exertion Endocrine: Denies: Fatigue, Heat or cold intolerance Gastrointestinal: Denies: Abdominal pain, Nausea, Vomiting Genitourinary: Denies: Incontinence, Retention Musculoskeletal: Reports: Arthralgia. Denies: Back pain, Gout, Joint swelling Skin: Denies: Bruising, Change in color Neurological: Denies: Abnormal gait, Confusion, Headache, Seizure Psychiatric: Denies: Anxiety Hematological/Lymphatic: Denies: Anemia, Blood Clots Past Medical History - SOCIAL HISTORY Smoking Status: Never smoker Alcohol Use: None Drug Use: None - RESPIRATORY Hx Respiratory Disorders: Yes Hx Sleep Apnea: Yes (needs testing) Hx of CPAP: No Comment:: has sinus problems-common sinus infections-clear sinus drainage - CARDIOVASCULAR Hx Cardio Disorders: Yes Hx Edema: Yes Hx Hypertension: Yes Comment:: heart murmur - NEURO Hx Neuro Disorders: Yes Hx Brain Tumor: Yes (20 yrs ago "pinpoint"-many CAT scans-no problems) Hx Dementia: Yes (on meds) Hx Dizziness: Yes ("comes & goes"/thyroid related) Hx Headaches: Yes (sinus related) Hx Neuropathy: Yes (hands&feet) Hx Parkinson's Disease: Yes (trembling of hands) Comment:: 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 - GI Hx GI Disorders: Yes Hx Abdominal Pain: Yes (diverticulosis) Hx Diverticulitis: Yes Hx Reflux: Yes Hx Hiatal Hernia: Yes Hx Irritable Bowel: Yes Hx Obstructive Bowel: Yes Hx Wt Loss/Wt Gain: Yes - Hx Genitourinary Disorders: Yes Hx Bladder Problem: Yes (incontinence x 2 years) Hx Kidney Stones: Yes Comment:: hyst - ENDOCRINE Hx Endocrine Disorders: Yes Hx Thyroid Disease: Yes (hypo) - MUSCULOSKELETAL Hx Musculoskeletal Disorders: Yes Hx Arthritis: Yes (hands/knees/elbows/back & hips) Hx Back Injury: Yes (sees chiropractor) Hx Osteoporosis: Yes - PSYCH Hx Psych Problems: Yes Hx Anxiety: Yes Hx Depression: Yes Hx Suicide Attempt: Yes - HEMATOLOGY/ONCOLOGY Hx Hematology/Oncology Disorders: Yes 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:: melanoma-spot looks like it returned-right ankle Family Medical History Any Significant Family History?: Yes Hx Anxiety: Mother Hx Depression: Father, Mother, Children, Brother/Sister Hx Diabetes: Brother/Sister *Diabetes Comment: 2 sisters & 1 brother Hx Heart Disease: Father, Brother/Sister *Heart Comment: brother 3 MIs Hx Resp Disorders: Brother/Sister *Resp Comment: 3 sisters use CPAP @ nite H&P Meds/Allergies - Allergies Allergies: Allergies Allergy/AdvReac Type Severity Reaction Status Date / Time latex [LATEX] Allergy Intermediate HIVES Verified 09/26/18 16:48 Sulfa (Sulfonamide Allergy Intermediate HIVES Verified 09/26/18 16:48 Antibiotics) [SULFA (SULFONAMIDE ANTIBIOTICS)] tioconazole AdvReac pain Verified 09/26/18 16:48 [From Monistat 1 (tioconazole)] - Home Medications Home Medications Medication Instructions Recorded Confirmed Last Taken Gabapentin [Neurontin] 600 mg PO TID 12/04/18 12/04/18 Unknown Previous Rx's Medication Instructions Recorded Alprazolam [Xanax] 0.25 mg PO Q8HR PRN 3 Days #6 07/30/18 tablet - Active Medications Active Medications: Current Medications Alprazolam (Xanax) 0.25 mg PO Q8HR PRN PRN Reason: ANXIETY Aspirin (Ecotrin (Ec)) 81 mg PO DAILY [facility] Last Admin: 12/04/18 09:21 Dose: 81 mg Documented by: Atorvastatin Calcium (Lipitor) 10 mg PO DAILY [facility] Last Admin: 12/04/18 09:18 Dose: 10 mg Documented by: Bumetanide (Bumex) 0.5 mg PO 0900,1600 [facility] Last Admin: 12/04/18 08:16 Dose: 0.5 mg Documented by: Gabapentin (Neurontin) 600 mg PO TID [facility] Last Admin: 12/04/18 09:20 Dose: 600 mg Documented by: Sodium Chloride () 500 mls @ 0 mls/hr IV .Q0M [facility] Levothyroxine Sodium (Synthroid) 175 mcg PO DAILYTHY [facility] Last Admin: 12/04/18 07:00 Dose: 175 mcg Documented by: Loratadine (Claritin) 10 mg PO DAILY [facility] Last Admin: 12/04/18 09:21 Dose: 10 mg Documented by: Morphine Sulfate (Morphine Sulfate) 2.5 mg IVP Q4H PRN PRN Reason: PAIN - MOD TO SEVERE (5-10) Non-Formulary Medication (Colestipol Hcl [Colestipol Hcl]) 2 gm PO BID [facility] Last Admin: 12/04/18 09:22 Dose: Not Given Documented by: Pantoprazole Sodium (Protonix) 80 mg PO DAILYAC [facility] Last Admin: 12/04/18 07:00 Dose: 80 mg Documented by: Potassium Chloride (Klor-Con) 10 meq PO DAILY [facility] Last Admin: 12/04/18 09:21 Dose: 10 meq Documented by: Pramipexole Dihydrochloride (Pramipexole Dihydrochloride) 1 mg PO BID [facility] Last Admin: 12/04/18 09:20 Dose: 1 mg Documented by: Sertraline HCl (Zoloft) 200 mg PO QHS [facility] Zolpidem Tartrate (Ambien) 5 mg PO QHS PRN PRN Reason: INSOMNIA Physical Exam - Vital Signs Vital Signs: Vital Signs - Last 24 Hrs Temp Pulse Pulse Resp BP BP BP 12/04/18 08:08 98.0 F 56 L 16 136/65 12/04/18 03:00 16 12/04/18 02:30 97.9 F 59 L 17 147/91 12/04/18 01:36 58 L 16 185/81 12/03/18 22:44 97.7 F 66 16 185/91 Pulse Ox 12/04/18 08:08 90 L 12/04/18 03:00 12/04/18 02:30 95 12/04/18 01:36 96 12/03/18 22:44 94 L - General General Appearance: Alert, Oriented x3, Cooperative, Moderate distress Limitations: No limitations - Head Head exam: Atraumatic, Normocephalic, Normal inspection Head exam detail: negative: Abrasion, Contusion, Wood's sign, General tenderness, Hematoma, Laceration - Eye Eye exam: Normal appearance. negative: Conjunctival injection, Periorbital swelling, Periorbital tenderness, Scleral icterus - ENT Ear exam: negative: Auricular hematoma, Auricular trauma Nasal Exam: negative: Active bleeding, Discharge, Dried blood, Foreign body Mouth exam: negative: Drooling, Laceration, Muffled voice, Tongue elevation - Neck Neck exam: Other (Cervical spine is immobilized in cervical collar on examination.) - Respiratory Respiratory exam: Normal lung sounds bilaterally, Chest wall tenderness (Right posterior-lateral ribs). negative: Rales, Respiratory distress, Rhonchi, Stridor - Cardiovascular Cardiovascular Exam: Regular rate, Normal rhythm, Normal heart sounds - GI/Abdominal GI/Abdominal exam: Soft. negative: Rebound, Rigid, Tenderness - Rectal Rectal exam: Deferred - exam: Deferred - Extremities Extremities exam: Tenderness, Other (TTP over the right hip, femur, and knee. N o obvious deformity is present on examination, strong distal dorsalis pedis pulse is present on examination.). negative: Calf tenderness, Pedal edema - Back Back exam: Denies: CVA tenderness (R), CVA tenderness (L) - Neurological Neurological exam: Alert, Oriented X3 - Psychiatric Psychiatric exam: Normal affect, Normal mood - Skin Skin exam: Normal color. negative: Abrasion Type of lesion: negative: abrasion Results - Labs Result Diagrams: 12/03/18 23:04 12/03/18 23:04 Labs Last 24 Hours: Laboratory Results - last 24 hr 12/03/18 12/03/18 12/03/18 23:04 23:04 23:04 WBC 10.5 RBC 4.06 Hgb 12.6 Hct 39.5 MCV 97.3 H MCH 31.0 MCHC 31.9 L RDW 16.2 H Plt Count 174 MPV 10.9 H Neutrophils % 64.0 Eosinophils % Not Reportable Basophils % Not Reportable Absolute Neutrophils 6.72 Lymphocytes 28.0 Monocytes 6.0 Toxic Granulation 1+ Platelet Estimate Normal Anisocytosis 1+ Eosinophil Count 2.0 PT 10.0 INR 1.0 Sodium 140 Potassium 4.3 Chloride 101 Carbon Dioxide 28.0 Anion Gap 11.0 BUN 30 H Creatinine 0.9 Estimated GFR > 60 Random Glucose 101 Calcium 9.7 Total Bilirubin 0.30 AST 22 ALT 18 Alkaline Phosphatase 114 H Total Protein 6.9 Albumin 4.3 Globulin 2.6 Albumin/Globulin Ratio 1.7 VTE H&P Assessment - Risk for VTE Risk for VTE: Yes Risk Level: Moderate Risk Assessment Date: 12/04/18 Risk Assessment Time: 10:00 VTE Orders Placed or Will Be Placed: Yes Plan - Detailed Diagnosis and Plan (1) Fall from standing Current Visit: Yes Status: Acute Qualifiers: Encounter type: initial encounter Qualified Code(s): W19.XXXA - Unspecified fall, initial encounter Base Code: W19.XXXA - UNSPECIFIED FALL, INITIAL ENCOUNTER Comment: 12/04/18 -Stumbled while using walker, does have right foot drop -Imaging completed in ED showing R and L 5th metatarsal fx and 6th right rib fx -PT/OT evaluation ordered -U/A negative (2) Generalized weakness Current Visit: Yes Status: Acute Base Code: R53.1 - WEAKNESS Comment: 12/04/18 -PT/OT ordered (3) Metatarsal fracture Current Visit: Yes Status: Acute Qualifiers: Encounter type: initial encounter Metatarsal bone: fifth Fracture type: closed Fracture alignment: displaced Laterality: right Qualified Code(s): S92.351A - Displaced fracture of fifth metatarsal bone, right foot, initial encounter for closed fracture Base Code: S92.309A - FRACTURE OF UNSP METATARSAL BONE(S), UNSP FOOT, INIT Comment: 12/04/18: -right distal 5th metatarsal fx, comminuted, angulated approximately 30 degrees -left proximal 5th metatarsal fx -Discussed case with Dr. Corrales who advised that pt could be WBAT and can continue with [employer] walking boots -Pt to f/u with Dr. Corrales as an outpatient -Ultram and Tylenol ordered for pain control -PT/OT evaluation ordered (4) Right rib fracture Current Visit: Yes Status: Acute Qualifiers: Encounter type: initial encounter Rib fracture type: single rib Fracture type: closed Qualified Code(s): S22.31XA - Fracture of one rib, right side, initial encounter for closed fracture Base Code: S22.31XA - FRACTURE OF ONE RIB, RIGHT SIDE, INIT FOR CLOS FX Comment: 12/04/18 -CT of chest: Right 6th rib fx -Ultram and Tylenol ordered for pain control (5) DVT prophylaxis Current Visit: Yes Status: Acute Base Code: Z29.9 - ENCOUNTER FOR PROPHYLACTIC MEASURES, UNSPECIFIED Comment: 12/04/18 -Lovenox 40mg subq daily -PT/OT and nursing to ambulate (6) DNR (do not resuscitate) Current Visit: Yes Status: Acute Base Code: Z66 - DO NOT RESUSCITATE Comment: 12/04/18 -Pt would like to be a DNR -Order signed with pt and witness for DNR status
--- NOTE | 2018-12-04 09:44 | RADIOLOGY REPORT ---
EXAM: LEFT FOOT, THREE VIEWS HISTORY: PAIN POST FALL. TECHNIQUE: Three views of the left foot were obtained. Comparison: Three views of the left foot dated 11/20/15. FINDINGS: There is borderline osteopenia. There is an intraarticular fracture of the lateral base of the fifth metatarsal with minimal distraction of the fracture fragments, new since the prior examination. This is age indeterminate. No other fracture is seen nor is there dislocation. There are degenerative changes scattered throughout the foot. These are primarily mild in degree though the changes at the first MTP joint level are moderate to severe associated with mild hallux valgus deformity. A small to moderate sized plantar calcaneal spur is present. IMPRESSION: 1. MINIMALLY DISPLACED INTRAARTICULAR FRACTURE OF THE LATERAL ASPECT OF THE FIFTH METATARSAL BASE. THIS IS NOT PRESENT ON THE PRIOR 11/20/15 EXAMINATION. THIS IS AGE INDETERMINATE. 2. NO OTHER FRACTURE IS SEEN NOR IS THERE DISLOCATION. 3. DEGENERATIVE CHANGES MOST PRONOUNCED IN THE FIRST MTP JOINT WHERE THEY ARE MODERATE TO ADVANCED. THESE ARE ASSOCIATED WITH MILD HALLUX VALGUS DEFORMITY. JOB NUMBER: [id number] [facility]
--- NOTE | 2018-12-04 09:51 | RADIOLOGY REPORT ---
EXAM: RIGHT FOOT, THREE VIEWS HISTORY: LATERAL FOOT PAIN POST FALL. TECHNIQUE: Three views of the right foot were obtained. Comparison: Three views of the right foot dated 08/23/18. Encounter: Initial. FINDINGS: There is diffuse osteopenia. No definite acute fracture nor dislocation is demonstrated. There is a healing fracture of the distal shaft of the fifth metatarsal. There is persistent apex inferolateral angulation of the fracture fragments, not significantly changed in the interval. Mild callus formation has progressed in the interval. There are mild degenerative changes of the first MTP joint associated with mild hallux valgus deformity. Minor degenerative changes are scattered throughout the remainder of the foot. IMPRESSION: 1. NO ACUTE FRACTURE NOR DISLOCATION. HEALING MILDLY ANGULATED FRACTURE OF THE DISTAL SHAFT OF THE FIFTH METATARSAL. CALLUS FORMATION HAS MILDLY PROGRESSED IN THE INTERVAL. NO CHANGE IN APPOSITION OR ALIGNMENT. 2. NOT MENTIONED ABOVE IS AN APPARENT HEALED FRACTURE DEFORMITY OF THE NECK OF THE FOURTH METATARSAL. NO PERSISTENT FRACTURE LINE AND THERE HAS BEEN NO CHANGE IN APPOSITION OR ALIGNMENT OF THE FRACTURE FRAGMENTS. JOB NUMBER: [id number] [facility]
[2018-12-04 10:11] LABS: URINE APPEARANCE CLEAR; URINE BILIRUBIN NEGATIVE (NEGATIVE); URINE BLOOD NEGATIVE (NEGATIVE); URINE COLOR YELLOW; URINE GLUCOSE (UA) NEGATIVE (NEGATIVE); URINE KETONE NEGATIVE (NEGATIVE); URINE LEUKOCYTE ESTERASE TRACE (NEGATIVE); URINE NITRITE NEGATIVE (NEGATIVE); URINE PROTEIN NEGATIVE (NEGATIVE); URINE UROBILINOGEN 0.2 E.U./dL (0.20 - 1.00)
[2018-12-04 10:21] LABS: URINE RBC NONE SEEN (NONE SEEN); URINE WBC 0 - 2 (0-2/hpf)
[2018-12-04] MEDS ORDERED: TRAMADOL HCL 50 MG TABLET PO PRN (10:58)
[2018-12-04] MEDS ORDERED: ACETAMINOPHEN 500 MG TABLET PO PRN (10:59)
--- NOTE | 2018-12-04 13:33 | Rehab Evaluation ---
Patient Information - Patient Information Diagnosis: fall from standing, R rib fracture, bilateral 5th metatarsal fraactu res Ordered Treatment: PT Evaluate and Treat Status: Initial Evaluation Past Medical/Surgical Hx: PAST MEDICAL/SURGICAL HISTORY Past Surgical History bladder suspension; bilateral wrist sx ; hysterectomy;bowel resection(obstructed); hernia ventral;parathyroidectomy; neurostimulator sacral area October 2014;excision melanoma right ankle 2-3 years ago. hemmorrhoidectomy; colonoscopys; EGD x 2; birthmark removed from abd area bootox injection to bladder PMH - Respiratory Hx Respiratory Disorders Yes Hx Sleep Apnea Yes: needs testing Hx of CPAP No Comment: has sinus problems-common sinus infections- clear sinus drainage PMH - Cardiovascular Hx Cardiovascular Disorders Yes Hx Edema Yes Hx Hypertension Yes Hx Heart Murmur Yes Comment: heart murmur PMH - Neuro Hx Neurological Disorders Yes Hx Brain Tumor Yes: 20 yrs ago "pinpoint"-many CAT scans-no problems Hx Cerebrovascular Accident Yes: think maybe about 10 years ago Hx Dementia Yes: on meds Hx Dizziness Yes: "comes & goes"/thyroid related Hx Headaches Yes: sinus related Hx Neuropathy Yes: hands&feet Hx Parkinson's Disease Yes: trembling of hands Hx Speech Problem Yes 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 has a "bag thats full of stones" PMH - Hx Genitourinary Disorders Yes Patient No Hx Bladder Problem Yes: incontinence x 2 years Hx Kidney Stones Yes Hx Urinary Tract Infection Yes Comment: hyst PMH - Endocrine Hx Endocrine Disorders Yes Hx Diabetes No Hx Thyroid Disease Yes: hypo PMH - Musculoskeletal Hx Musculoskeletal Disorders Yes Hx Arthritis Yes: hands/knees/elbows/back & hips Hx Back Injury Yes: sees chiropractor Hx Osteoporosis Yes PMH - Psych Hx Psychiatric Problems Yes Hx Anxiety Yes Hx Depression Yes Hx Suicide Attempt Yes PMH - Hematology/Oncology Hx Hematology/Oncology Yes Disorders Hx Cancer Yes: removed skin CA ankle Comment: melanoma-spot looks like it returned-right ankle Premorbid Status: Detail (The patient was ambulatory with a 4 wheeled walker prior to fall and had assistance from her daughter with dressing and tub transfers. Daughter and her family completed most housekeeping tasks however patient assisted with folding towels, and loading green end worker.) Social History: Detail (The patient lives with daughter amd her family in a one story house with 4/5 steps at the enterance and no railings. The bathroom the p atmusa uses has a tub/shower combination with a tub seat and grab bars, a toilet with a riser seat with handles and a grab bar. The patient has another daughter who lives next door and assists patient at times. The patient has a 4 wheeled walker, hospital bed and wheelchair which she does not use.) Precautions: [place], Fall - Time With Patient Total Time Spent With Patient (Min): 30 Treatment Procedures: Detail (Initial Evaluation Low complexity due to stable condition) Subjective Information - Subjective Information Per Patient (The patient had complaints of pain in [place] feet with ambulation.) Objective Data - Mental Status Patient Orientation: Person (The patient knew birthdate but not age(23) and did not know current month(December). The paitent did indentify current year and stated the president was "loud mouth.") - ROM Not within normal limits (The patient's LE AROM was WFL however ankle and toe ROM was not tested s/p bilateral 5th metatarsal fractures.) - Strength/Tone Not within normal limits (The patient's bilateral foot/ankle strength were not tested s/p bilateral 5th metatarsal fractures. Hip musculature strength was generally 4 to 4-/5, knee musculature 4/5.) - Bed Mobility Independent (The patient was independent with supine to sit transfer.) - Transfers Independent (The patient required minimal to moderate PA of 1 with sit to stand from bed and moderate PA of one from toilet with use of grab bar. The patient acheived stand to sit with CG of 1 plus verbal cues to reach back from chair.) - Balance Balance Sitting: Good Balance Standing: Fair (stands with support of walker.) - Gait Detail (The patient ambulated with front wheeled walker 7 feet x 2 (to and from bathroom) with bilateral walking boots WBAT bilaterally with CG of 1 for safety plus occasional assist to move walker around obstacles . Patient exhibited unsteadiness at times with ambulation with one LOB episode with R knee hyperextending.) Therapy Assessment - Therapy Assessment Detail (The patient exhibited LE weakness bilaterally, assistance with transfers and CG with ambulation due to unsteadiness. Feel the patient would benefit from subacute rehab to return to previous functional level. Feel the patient requires 24 hour supervision at this time due to unsteadiness with gait and assistance required with transfers.) Problem List - Problem List Physical Therapy Problem List: Detail (1) Decreased LE strength 2) Unsteady gait and CG with ambulation as this time due to occasional LOB. 3) Assistance with sit to and from stand transfer\\ 4) Bilateral LE pain with ambulation s/p bilateral 5th metatarsal fractures.) Goals - Goals Physical Therapy Goals: 1) The patient will be independent/supervision with all transfers. 2) The patient will ambulate safely with supervision with appropriate assistive device household distances. 3) Assess the patient's balance using objective balance test secondary to frequent falls. 4) Increase/maintain LE strength to increase stability of ambulation. Prognosis - Prognosis Moderate Plan - Plan Physical Therapy Plan: PT daily M-F for gait training, transfer training, LE strengthening and balance exercies.
--- NOTE | 2018-12-04 14:16 | Rehab Evaluation ---
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 hemmorrhoidectomy; colonoscopys; EGD x 2; birthmark removed from abd area bootox injection to bladder PMH - Respiratory Hx Respiratory Disorders Yes Hx Sleep Apnea Yes: needs testing Hx of CPAP No Comment: has sinus problems-common sinus infections- clear sinus drainage PMH - Cardiovascular Hx Cardiovascular Disorders Yes Hx Edema Yes Hx Hypertension Yes Hx Heart Murmur Yes Comment: heart murmur PMH - Neuro Hx Neurological Disorders Yes Hx Brain Tumor Yes: 20 yrs ago "pinpoint"-many CAT scans-no problems Hx Cerebrovascular Accident Yes: think maybe about 10 years ago Hx Dementia Yes: on meds Hx Dizziness Yes: "comes & goes"/thyroid related Hx Headaches Yes: sinus related Hx Neuropathy Yes: hands&feet Hx Parkinson's Disease Yes: trembling of hands Hx Speech Problem Yes 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 has a "bag thats full of stones" PMH - Hx Genitourinary Disorders Yes Patient No Hx Bladder Problem Yes: incontinence x 2 years Hx Kidney Stones Yes Hx Urinary Tract Infection Yes Comment: hyst PMH - Endocrine Hx Endocrine Disorders Yes Hx Diabetes No Hx Thyroid Disease Yes: hypo PMH - Musculoskeletal Hx Musculoskeletal Disorders Yes Hx Arthritis Yes: hands/knees/elbows/back & hips Hx Back Injury Yes: sees chiropractor Hx Osteoporosis Yes PMH - Psych Hx Psychiatric Problems Yes Hx Anxiety Yes Hx Depression Yes Hx Suicide Attempt Yes PMH - Hematology/Oncology Hx Hematology/Oncology Yes Disorders Hx Cancer Yes: removed skin CA ankle Comment: melanoma-spot looks like it returned-right ankle Premorbid Status: Detail (The patient was ambulatory with a 4 wheeled walker prior to fall and had assistance from her daughter with dressing and tub transfers. Pt was Ind with showering and partial dressing tasks. Daughter and her family completed most housekeeping tasks however patient assisted with folding towels and loading supervisor wet end.) Social History: Detail (The patient lives with daughter amd her family in a one story house with 4-5 steps at the entrance and no railings. The bathroom the patient uses has a tub/shower combination with a tub seat and grab bars, a toilet with a riser seat with handles and a grab bar. The patient has another daughter who lives close by and assists patient at times. The patient has a 4 wheeled walker, hospital bed and wheelchair which she does not use.) Precautions: [place], Fall, Other (DNR, WBAT gibran LEs) - Time With Patient Total Time Spent With Patient (Min): 25 Treatment Procedures: Detail (OT eval low complexity) Subjective Information - Subjective Information Per Patient, Other (Per daughter who was present for evaluation) Objective Data - Pain Pain Present: No (Pt reports no pain at rest.) - Mental Status Patient Orientation: Person (Pt oriented to self, birthday, year and president. She stated month as Crystal or December, age as 23.) - Visual Perception Appears within normal limits for therapeutic activities (Pt wears glasses at all times.) - ROM Within normal limits (Gibran UE AROM WNL) - Strength/Tone Not within normal limits (Gibran UE strength 4-/5 throughout.) - Coordination Deficit (Pt reports some difficulty with coordination.) - Bed Mobility Independent (Ind with supine to sit) - Transfers Needs Assist (Min to mod assist x 1 for sit to stand from EOB to walker.) - Balance Balance Sitting: Good Balance Standing: Fair - Sensation Intact - Gait Detail (Pt ambulated several feet in room with 2 wheeled walker and CG assist.) - ADL's/IADL's Detail (Pt requiring assist from nursing for all self cares at this time.) Therapy Assessment - Therapy Assessment Detail (Pt presents with decreased Ind with self cares and functional mobillity as well as poor activity tolerance.) Problem List - Problem List Physical Therapy Problem List: Detail (1) Decreased LE strength 2) Unsteady gait and CG with ambulation as this time due to occasional LOB. 3) Assistance with sit to and from stand transfer\\ 4) Bilateral LE pain with ambulation s/p bilateral 5th metatarsal fractures.) Occupational Therapy Problem List: Detail (1. Decreased Ind with showering. 2. Decreased Ind with total body dressing. 3. Decreased tolerance to activity needed for safe return home.) Goals - Goals Physical Therapy Goals: 1) The patient will be independent/supervision with all transfers. 2) The patient will ambulate safely with supervision with appropriate assistive device household distances. 3) Assess the patient's b alance using objective balance test secondary to frequent falls. 4) Increase/maintain LE strength to increase stability of ambulation. Occupational Therapy Goals: 1. Pt will be Ind with showering in sitting. 2. Pt will be Ind with upper body dressing. 3. Pt will demonstrate improved endurance needed for safe and Ind self cares. Prognosis - Prognosis Good Plan - Plan Physical Therapy Plan: PT daily M-F for gait training, transfer training, LE strengthening and balance exercies. Occupational Therapy Plan: Recommend IP rehab stay to ensure safety and Ind with self cares and functional mobility to allow return home.
[2018-12-04] MEDS: ENOXAPARIN 40 MG/0.4 ML SYR SQ SCH (18:26)
[2018-12-04] MEDS: SERTRALINE HCL 50 MG TABLET PO SCH ×2 (20:54→21:01)
[2018-12-05] MEDS: LEVOTHYROXINE SODIUM 175 MCG TABLET PO SCH (06:29)
[2018-12-05] MEDS: PANTOPRAZOLE SODIUM 40 MG TABLET PO SCH (06:29)
--- NOTE | 2018-12-05 07:45 | RADIOLOGY REPORT ---
EXAM: CHEST, ONE VIEW HISTORY: SUBACUTE REHAB PLACEMENT. TECHNIQUE: A single AP view of the chest was obtained. Comparison: None. FINDINGS: The cardiomediastinal silhouette is upper limits of normal in size. The pulmonary vasculature is not overly congested. No focal consolidation, pleural effusion, or pneumothorax is evident. IMPRESSION: NO EVIDENCE FOR ACTIVE PNEUMONIA. JOB NUMBER: [id number] MTDD
[2018-12-05] MEDS: BUMETANIDE 1 MG TABLET PO SCH (09:09)
[2018-12-05] MEDS: COLESTIPOL HCL 2 GM PO SCH (09:29)
[2018-12-05] MEDS: ATORVASTATIN 20 MG TABLET PO SCH (09:31)
[2018-12-05] MEDS: PRAMIPEXOLE DI-HCL 0.25 MG TABLET PO SCH (09:32)
[2018-12-05] MEDS: GABAPENTIN 300 MG CAPSULE PO SCH (09:32)
[2018-12-05] MEDS: POTASSIUM CHLORIDE 10 MEQ TAB PO SCH (09:32)
[2018-12-05] MEDS: ASPIRIN 81 MG TABEC PO SCH (09:33)
[2018-12-05] MEDS: ENOXAPARIN 40 MG/0.4 ML SYR SQ SCH (09:33)
[2018-12-05] MEDS: LORATADINE 10 MG TABLET PO SCH (09:33)
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
--- NOTE | 2018-12-05 14:16 | Physical Therapy Tx Note ---
Physical Therapy Tx Note - Treatment Note Tolerated: Good Total Time Spent With Patient: 40 Physical Therapy Tx Note: Detail (Pt sitting up in chair upon arrival, awake/alert, cooperative for therapy. Daughter María present for session. Pt performed 10 reps each of seated marching, seated knee extension, heel slides, isometric hip abduction and adduction, heel raises. Pt unable to do toe raises due to neuropathy, minimal movement on L foot, none on R. Max assist to don ankle foot immobilizers for ambulation. Minimal assist for sit/stand transfer to front wheeled walker. Ambulated w/front wheeled walker and CGA from bedside chair to room door, back to bathroom, and returned to bedside chair (about 35 feet total), WBAT B LE. Required minimal assist for toilet transfers due to height of toilet, and heavy moderate assistance for clothing management and m anaging toilet paper. Pt reported fatigue after treatment; chose to stay in chair through lunch. Left up in chair with bedside table in front, call light in reach; daughter present in room. Nrsg notified.) Physical Therapy Problem List: Detail (1) Decreased LE strength 2) Unsteady gait and CG with ambulation as this time due to occasional LOB. 3) Assistance with sit to and from stand transfer\ 4) Bilateral LE pain with ambulation s/p bilateral 5th metatarsal fractures.) Physical Therapy Goals: 1) The patient will be independent/supervision with all transfers. 2) The patient will ambulate safely with supervision with appropriate assistive device household distances. 3) Assess the patient's balance using objective balance test secondary to frequent falls. 4) Increase/maintain LE strength to increase stability of ambulation. Physical Therapy Plan: PT daily M-F for gait training, transfer training, LE strengthening and balance exercies.
== END 2018-12-05 15:15 ==
LOC: ER 22:38 → MEDSURG 12-04 01:52
PROVIDERS: ADMIT Internal Medicine; ATTEND Internal Medicine
DX: M25.511 Pain in right shoulder (principal); S22.31XA Fracture of one rib, right side, initial encounter for closed fracture; S92.351A Displaced fracture of fifth metatarsal bone, right foot, initial encounter for closed fracture; S92.352A Displaced fracture of fifth metatarsal bone, left foot, initial encounter for closed fracture; W01.0XXA Fall on same level from slipping, tripping and stumbling without subsequent striking against object, initial encounter; R53.1 Weakness; I10 Essential (primary) hypertension; G20 Parkinson's disease; F03.90 Unspecified dementia, unspecified severity, without behavioral disturbance, psychotic disturbance, mood disturbance, and anxiety; R60.9 Edema, unspecified; G61.81 Chronic inflammatory demyelinating polyneuritis; G62.9 Polyneuropathy, unspecified; K21.9 Gastro-esophageal reflux disease without esophagitis; K58.9 Irritable bowel syndrome, unspecified; R32 Unspecified urinary incontinence; E03.9 Hypothyroidism, unspecified; M19.90 Unspecified osteoarthritis, unspecified site; M81.0 Age-related osteoporosis without current pathological fracture; F41.8 Other specified anxiety disorders; Z66 Do not resuscitate; Z85.820 Personal history of malignant melanoma of skin; Z85.828 Personal history of other malignant neoplasm of skin
CPT/HCPCS: 70450; 71045; 71250; 72125; 74176; 80053; 81001; 85027; 85610; 96374; 96375; 97110; 97530; 99217; 99220; 99285; J1650; J2405